=== PATIENT | male | born 1975 | race Two or more races ===

== ENCOUNTER 2025-03-14 15:54 | Inpatient (IN) | payer MEDICAID ==
[~2025-03-14] VITALS: Ht 177.8 cm; Wt 110.5 kg
[2025-03-14] VITALS (15 sets, daily range): BP systolic 94–117; BP diastolic 48–71; PULSE 97–136; RESP 16–27; TEMP 97.4; O2SAT 94–99
[~2025-03-14 15:54] MED LIST: ATOR80TA PO; BENA20TA2 PO; BENZ1KIT27; CHOL200012 PO; CLIN60SO2 TP; FOLI0.8T7 PO; FURO80TA87 PO; HYDR100T12 PO; LABE300T4 PO; OMEP40CA21 PO; POLY17PO26 PO; Renagel PO; SERT50TA PO
--- NOTE | 2025-03-14 16:09 | Physician Documentation ---
History of Present Illness General Chief Complaint: Hypotension Stated Complaint: SEPSIS Time Seen by MD: 15:55 History of Present Illness Initial Comments The patient is a 49-year-old male who presents to the emergency room being transferred from [facility] for fevers. The patient was at dialysis today and was noted to have a fever. He states he has had fevers since yesterday and nausea and vomiting. The patient was found to have a temperature of 38.3 at [place] and was found to be tachycardic to a proximally 130 beats per minute. The patient did receive antibiotics prior to his transfer. The patient denies any significant abdominal pain he states he has had some nausea but currently he is without any nausea. He states he has been on dialysis secondary to high blood pressure. Patient denies any chest pain or shortness of breath symptoms are moderate and persistent. The patient was treated with antibiotics prior to arrival in our institution. Medication Reconciliation Allergies: Coded Allergies: Penicillins (Verified Allergy, Unknown, 04/07/14) cefazolin (Unverified Allergy, Unknown, 03/14/25) guaifenesin (Verified Adverse Reaction, Unknown, PT NOT TO TAKE PER HIS PSYCHIATRIST, 01/07/19) Scheduled Amlodipine Besylate (Amlodipine Besylate), 1 TAB PO DAILY, (Reported) Atorvastatin Calcium (Lipitor), 1 TABLET PO HS, (Reported) Benazepril Hcl (Benazepril Hcl), 40 MG PO BID, (Reported) Cholecalciferol (Vitamin D3) (Vitamin D3), 1 TAB PO DAILY, (Reported) Cholecalciferol (Vitamin D3) (Vitamin D3), 1 TAB PO DAILY, (Reported) Clindamycin Phosphate (Clindamycin Phosphate), 1 APPLIC TP BID, (Reported) Folic Acid/Vitamin B Comp W-C (Dialyvite 800 Tablet), 1 TAB PO DAILY, (Reported) Furosemide* (Lasix*), 1 TAB PO TID, (Reported) Hydralazine HCl (Hydralazine HCl), 1 TAB PO Q8H, (Reported) Labetalol Hcl (Labetalol Hcl), 2 TAB PO TID, (Reported) Multivitamin (One-Daily Multi-Vitamin), 1 TAB PO DAILY, (Reported) Omeprazole (Prilosec), 1 CAP PO DAILY, (Reported) Polyethylene Glycol 3350 (Gavilax), 17 GM PO DAILY, (Reported) Sertraline Hcl* (Zoloft*), 2 TAB PO BID, (Reported) [Renagel], 2,400 MG PO TIDWM, (Reported) Miscellaneous Medications Benzoyl Perox/Skin Clnsr/Emoll (Acnefree Severe Acne Clr Systm), (Reported) Cinacalcet HCl (Cinacalcet HCl), (Reported) Lorazepam (Ativan), (Reported) Olanzapine/Samidorphan Malate (Lybalvi 5-10 mg Tablet), (Reported) Sevelamer HCl (Sevelamer HCl), (Reported) Sodium Zirconium Cyclosilicate (Lokelma), (Reported) Past Medical History Past Medical History: Renal Disease Past Surgical History: noncontributory Drug Use: none Lives with: Other Lives In: Home Physical Exam Physical Exam Vital Signs: Temperature: 98.7, Source: Oral, Heart Rate: 112, Respiratory Rate: 16, BP: 111/66, Pulse Oximetry: 97, Weight: 110.500 Oxygen Flow Rate: 0 Physical Exam VITALS: Reviewed and as above. GENERAL: Alert, no apparent distress. HEENT: Normocephalic, atraumatic, PERRL, EOMI, dry mucosa, no erythema RESPIRATORY: Lungs clear, normal breath sounds, no respiratory distress. CHEST: No accessory muscle use, no retractions CV: Tachycardic rate and rhythm, no edema, no murmur, No: JVD GI: Soft, non-tender, bowels sounds present, no rebound, guarding, or rigidity BACK: No CVA tenderness, or swelling MUSCULOSKELETAL: No deformities, no edema SKIN: Warm and dry, no rash NEURO: Oriented x4, No motor or sensory deficit PSYCH: Normal mood and affect, no agitation Progress Results/Orders Results/Orders Orders - OHLFS,CHRISTINA Gomez MD Page Hospitalist (03/14/25 16:47) Completed Orders - OHLFS,CHRISTINA Gomez MD Cbc/Diff (03/14/25 16:08) Bmp Er (03/14/25 16:08) Lacticsepsis (03/14/25 16:09) Procalcitonin (03/14/25 16:09) Hs Troponin I W Calculations (03/14/25 16:16) Electrocardiogram (03/14/25 16:39) C-Reactive Protein (03/14/25 16:40) Lipid Panel (03/14/25 16:40) Vital Signs 03/14/25 03/14/25 15:58 16:12 Temp 98.7 Pulse 112 Resp 16 14 B/P (MAP) 111/66 Pulse Ox 97 O2 Flow Rate 0 Laboratory Tests Test 03/14/25 16:40 White Blood Count 6.8 Red Blood Count 4.00 L Hemoglobin 12.5 L Hematocrit 36.9 L Mean Corpuscular Volume 92.2 Mean Corpuscular Hemoglobin 31.3 H Mean Corpuscular Hemoglobin Concent 34.0 Red Cell Distribution Width 15.0 H Platelet Count 71 L Mean Platelet Volume 8.5 Neutrophils (%) (Auto) 91.4 H Lymphocytes (%) (Auto) 4.3 L Monocytes (%) (Auto) 3.7 Eosinophils (%) (Auto) 0.1 Basophils (%) (Auto) 0.5 Neutrophils # (Auto) 6.2 Lymphocytes # (Auto) 0.3 L Monocytes # (Auto) 0.3 Eosinophils # (Auto) 0.0 Basophils # (Auto) 0.0 CBC Comment Erythrocyte Sedimentation Rate 34 H Sodium Level 134 L Potassium Level 4.5 Chloride Level 98 L Carbon Dioxide Level 26.0 Anion Gap 10 Blood Urea Nitrogen 25 H Creatinine 8.82 H Estimated GFR/1.73 m2 6 BUN/Creatinine Ratio 2.8 L Glucose Level 96 Lactic Acid Level 2.4 H Calcium Level 9.6 Troponin I High Sensitivity 168 *H C-Reactive Protein 20.38 H Albumin 3.3 L Triglycerides Level 218 H Cholesterol Level 114 LDL Cholesterol 50 HDL Cholesterol 30 L Cholesterol/HDL Ratio 3.8 Procalcitonin 145.12 H Chemistry Comments EKG/XRAY/CT/US/VASC/MRI Chest X-Ray : Additional Comments Patient: ZAHRAA DANG Medical Record: [id number] [facility] : 1975, Age: 49 Sex: Male Location: [facility] 3S Patient Status: ADM IN Service Date/Time: 03/14/25/ Ordering Physician: ZACH CASTILLO Exam: CHEST,SINGLE VIEW CHEST RADIOGRAPH Indication: sob Technique: Single frontal view of the chest was obtained Comparison: None FINDINGS: Lines and Tubes: None Lungs: Diffuse interstitial prominence. Right infrahilar opacity. Elevated right hemidiaphragm. Indistinctness of the left hemidiaphragm. No pneumothorax. Cardiomediastinal contours: Mild cardiomegaly Bones: No acute osseous abnormality. IMPRESSION: Mild cardiomegaly with pulmonary vascular congestion. Obscuration of the left hemidiaphragm which may be from overlying cardiac silh ouette. Underlying trace effusion/atelectasis can not be excluded. Right infrahilar opacity which may represent pneumonia / atelectasis with a mass not excluded. CT is recommended for further evaluation. Electronically Signed by:LUZ MARINA BRIZUELA DO Date & Time: 03/14/252151 Dictated by: LUZ MARINA BRIZUELA DO Dictation date and time: 03/14/252151 Primary Care Provider: NO PRIMARY CARE PROVIDER cc: ZACH CASTILLO RES ~ Medical Decision Making Findings The patient has a recently placed tunneled dialysis catheter, the case was discussed with Dr. Goldberg who states the cultures of already started growing Gram- negative rods he is advising the patient needs the catheter removed. The case has been discussed with the surgeon on-call Dr. Lu he has agreed to remove the catheter the patient will be admitted to the hospitalist. The patient will be admitted to the hospitalist case has been discussed with the hospitalist. Prior hospitalizations have been reviewed. The patient's pulse oximetry was interpreted as normal and adequate there nurse monitoring was interpreted as a sinus tachycardia. Departure Admitted to Inpatient Unit: yes, to hospitalist Impression: Primary Impression: Line sepsis associated with dialysis catheter Referrals: NO PRIMARY CARE PROVIDER (PCP) Signature Scribe Signature: no scribe Attestation: The note accurately reflects work and decisions made by me.Christina Ramirez MD 03/17/25 00:31 CHRISTINA RAMIREZ MD Mar 14, 2025 16:09
--- NOTE | 2025-03-14 16:54 | ELECTROCARDIOGRAPH REPORT ---
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
[2025-03-14 16:56] LABS: MEAN PLATELET VOLUME 8.5 FL (7.4-10.4); RED CELL DISTRIBUTION WIDTH 15.0 % (11.5-14.5)
[2025-03-14 17:05] LABS: CREATININE 8.82 MG/DL (0.60-1.10); TOTAL CARBON DIOXIDE 26.0 MMOL/L (24-32); eCRCL 11 ML/MIN; eGFR 6 ML/MIN
--- NOTE | 2025-03-14 17:52 | CONSULTATION REPORT ---
Consult Providers to CC ~ History of Present Illness Primary Medical Doctor: berta Ramirez MD Reason for Admit\Complaint: line sepsis, high procalcitonin, s/p HD today History of Present Illness 49 year old gentleman that is well known to me from [place] [facility] , where hehas been on HD for his ESRD as early as 2005, that unfortunatley lost his AV fistula and has been on TDC. He has had one sepsis from the line previously some time ago. He started spiking fevers with chlls at the dialysis center during HD and blood cultures were drawn. I made sure he received Vancomycin and 2 g of cefepime, prior to transferring him to Er. He came to [facility] ER. Within 4 hours, his cultures were positive for GNR. So I requested to consult to get the TDC out today to avoid seeding futehr and avoid endocarditis. gaciously agreed to do it after his OR case today. patient is stable however, from hemodynamic standpoint. Allergies: Coded Allergies: Penicillins (Verified Allergy, Unknown, 04/07/14) cefazolin (Unverified Allergy, Unknown, 03/14/25) guaifenesin (Verified Adverse Reaction, Unknown, PT NOT TO TAKE PER HIS PSYCHIATRIST, 01/07/19) Home Medications Home Medications Active Reported Acnefree Severe Acne Clr Systm (Benzoyl Perox/Skin Clnsr/Emoll) 1 Each Kit Gavilax (Polyethylene Glycol 3350) 17 Gm Powd.pack 17 Gm PO DAILY Vitamin D3 (Cholecalciferol (Vitamin D3)) 2,000 Unit Capsule 1 Tab PO DAILY Hydralazine HCl 100 Mg Tablet 1 Tab PO Q8H 30 Days Dialyvite 800 Tablet (Folic Acid/Vitamin B Comp W-C) 0.8 Mg Tablet 1 Tab PO DAILY 30 Days Prilosec (Omeprazole) 40 Mg Capsule 1 Cap PO DAILY 30 Days Clindamycin Phosphate 60 Ml Solution 1 Applic TP BID [Renagel] 800 Tab 2,400 Mg PO TIDWM Labetalol Hcl 300 Mg Tablet 2 Tab PO TID Zoloft* (Sertraline HCl) 50 Mg Tablet 2 Tab PO BID Lasix* (Furosemide) 80 Mg Tablet 1 Tab PO TID Benazepril Hcl (Benazepril HCl) 20 Mg Tablet 40 Mg PO BID Lipitor (Atorvastatin Calcium) 80 Mg Tablet 1 Tablet PO HS Past Medical History Past Medical History ESRD HTN Arrhythmia Depression/anxiety Past Surgical History Surgical History Comment AV fistula that failed Past Social History Social History Comment non smoker, non alcoholic, no drug abuse history ROS ROS chills, rigors in dialysis. no feels ok. no chest pain, or shortness of breath. completed his dialysis today. Exam Vitals: Vital Signs Date Time Temp Pulse Resp B/P (MAP) Pulse Ox O2 Delivery O2 Flow Rate FiO2 03/14/25 16:12 14 03/14/25 15:58 98.7 112 97 0 General: Vital Signs: As above General: Normal body habitus, no acute distress. Skin: No rashes, lumps, ulcers, blisters, purpura or petechiae HEENT: Anicteric sclera, SHERMAN Neck: Supple and nontender without enlargement of the thyroid, or lymphadenopathy. Chest: Normal size and shape, no tenderness, CTA bilaterally Heart: Regular. No jugular venous distention, S1 and S2 heard , no gallop Abdomen: Soft and non tender no organomegaly,BS+ Extremities: No pedal edema Neuro: Nonfocal. Diagnostic Data Last Recorded Lab Results: 03/14/25 1640 03/14/25 1640 Problems: (1) Line sepsis associated with dialysis catheter Assessment & Plan: has graciously agreed to pullthe TDC out today, after he is done with the OR case. He has received the Cefepime 2 g in [facility] [place] and he does NOT need any antibiotics tomorrow. STOP Vancomycin. He is growing GNR. He already received Vancomycin as well in [facility] [place] dialysis today. Cefepime will stay in system until Monday and to give another dose only on Monday. If the repeat cultures are negative by Monday, will request a new TDC early next week followed by dialysis. (2) End-stage renal disease on hemodialysis Status: Chronic Assessment & Plan: next HD hopefully by Monday with a new TDC from if the cultures remain negative henceforth. Daily blood cultures please. BRENNAN TATUM MD Mar 14, 2025 17:52
[2025-03-14] MEDS ORDERED: morphine 4 MG/ML inj SYRINge IV PRN (18:05)
[2025-03-14] MEDS ORDERED: labetalol 20mg/4ml (5mg/ml) syringe IV PRN (18:05)
[2025-03-14] MEDS ORDERED: ondansetron/PF 4mg/2ml inj IV PRN ×2 (18:05→18:35)
[2025-03-14] MEDS ORDERED: fentaNYL/PF 50MCG/1 ML 2ML syringe IV PRN ×2 (18:05)
[2025-03-14] MEDS ORDERED: hydrALAZINE 20mg/ml inj. IV PRN (18:05)
--- NOTE | 2025-03-14 18:28 | PROGRESS NOTE ---
Progress Note ID Providers to CC ~ Progress Note Progress Note: discussed procedure including risks/benefits/alternatives YENY ZEPEDA MD Mar 14, 2025 18:28
[2025-03-14] MEDS ORDERED: mag hydrox/Alum hydrox/simeth 30ml oral suspension PO PRN (18:35)
[2025-03-14] MEDS ORDERED: magnesium Cl slow-release 64mg tablet PO PRN (18:35)
[2025-03-14] MEDS ORDERED: potassium Cl 20 mEq SR tablet PO PRN ×2 (18:35)
[2025-03-14] MEDS ORDERED: HYDROcodone/acetaminophen 10/325mg tab PO PRN ×2 (18:35→19:50)
[2025-03-14] MEDS ORDERED: magnesium sulf-water 2g/50mL 50 ML IV PRN (18:35)
[2025-03-14] MEDS ORDERED: HYDROcodone/acetaminophen 5mg/325mg tablet PO PRN (18:35)
[2025-03-14] MEDS ORDERED: magnesium sulf-water 4G/100mL 100 ML IV PRN (18:35)
[2025-03-14] MEDS ORDERED: magnesium hydroxide 30ml (MOM) UD suspension PO PRN (18:35)
[2025-03-14] MEDS ORDERED: potassium Cl 40MEQ/1/2NS 520ml 520 ML IV PRN (18:35)
[2025-03-14] MEDS ORDERED: fentaNYL/PF 50MCG/1 ML 2ML syringe ONE (18:43)
[2025-03-14] MEDS ORDERED: midazolam 1 mg/ML 2ml injection ONE (18:43)
[2025-03-14] MEDS ORDERED: LIDOcaine 1% (10mg/ml)w/preservative inj. 20ml MDV ONE (18:50)
--- NOTE | 2025-03-14 19:12 | HISTORY AND PHYSICAL-Residence ---
History & Physical Providers to CC Resident Creating Document: MARITTA CASTILLOVANI, RES ~ History of Present Illness Primary Medical Doctor: berta Ramirez MD Reason for Admit\Complaint: Sepsis History of Present Illness This is a 49-year-old male with past medical history of hypertension and chronic kidney disease stage 5 on dialysis who came to the ER from [place] in view of infected TDC placed on the right side of his chest. He was diagnosed with hypertension at the age of 20 years and is undergoing dialysis since 8-[address] Goldberg's patient. A new temporary dialysis catheter was inserted on Monday. On Monday he started feeling feverish with nausea and vomiting. 2-3 episodes of vomiting today, contained food particles, not blood tinged, non bile stained. He had a dialysis session today in [place] during which time Dr. Goldberg noticed that his TDC was infected and referred him to [facility]. He was taken to the OR on arrival and a new TDC was placed. He was given 2 g cefepime in [place] which will stay in his system for the next 48 hours. His next antibiotic dose is on Monday. His next dialysis session is on Monday. 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 He is a poor historian. We will call his facility to get some more information Allergies: Coded Allergies: Penicillins (Verified Allergy, Unknown, 04/07/14) cefazolin (Unverified Allergy, Unknown, 03/14/25) guaifenesin (Verified Adverse Reaction, Unknown, PT NOT TO TAKE PER HIS PSYCHIATRIST, 01/07/19) Home Medications Home Medications Active Reported Acnefree Severe Acne Clr Systm (Benzoyl Perox/Skin Clnsr/Emoll) 1 Each Kit Gavilax (Polyethylene Glycol 3350) 17 Gm Powd.pack 17 Gm PO DAILY Vitamin D3 (Cholecalciferol (Vitamin D3)) 2,000 Unit Capsule 1 Tab PO DAILY Hydralazine HCl 100 Mg Tablet 1 Tab PO Q8H 30 Days Dialyvite 800 Tablet (Folic Acid/Vitamin B Comp W-C) 0.8 Mg Tablet 1 Tab PO DAILY 30 Days Prilosec (Omeprazole) 40 Mg Capsule 1 Cap PO DAILY 30 Days Clindamycin Phosphate 60 Ml Solution 1 Applic TP BID [Renagel] 800 Tab 2,400 Mg PO TIDWM Labetalol Hcl 300 Mg Tablet 2 Tab PO TID Zoloft* (Sertraline HCl) 50 Mg Tablet 2 Tab PO BID Lasix* (Furosemide) 80 Mg Tablet 1 Tab PO TID Benazepril Hcl (Benazepril HCl) 20 Mg Tablet 40 Mg PO BID Lipitor (Atorvastatin Calcium) 80 Mg Tablet 1 Tablet PO HS Past Medical History Past Medical History Hypertension Chronic kidney disease Depression/anxiety Past Surgical History Surgical History Comment None Past Social History Smoking: Non-Smoker Alcohol Use: Sober (Sober since 8-9 years. 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) Domestic Violence: Neg ROS Constitutional: Reports: diaphoresis, fever Eyes: Reports: no symptoms reported ENT: Reports: no symptoms reported Respiratory: Reports: no symptoms reported, shortness of breath Cardiovascular: Reports: no symptoms reported Gastrointestinal: Reports: no symptoms reported Genitourinary: Reports: no symptoms reported Male Genitalia: Reports: no symptoms reported Neurological: Reports: no symptoms reported Musculoskeletal: Reports: no symptoms reported Integumentary: Reports: no symptoms reported Allergic/Immunologic: Reports: no symptoms reported Hematologic/Lymphatic: Reports: no symptoms reported Endocrine: Reports: no symptoms reported Psychiatric: Reports: no symptoms reported Exam Vitals: Vital Signs Date Time Temp Pulse Resp B/P (MAP) Pulse Ox O2 Delivery O2 Flow Rate FiO2 03/14/25 16:12 14 03/14/25 15:58 98.7 112 97 0 General: General: Patient waking up from anesthesia, oriented to place and time and person, drowsy, not agitated, not in acute distress, well cooperated during the physical. HEENT: Conjunctive are pink, sclerae clear, no icterus, pupil is equal in both sides, reactive to light, no ear discharge, no pharyngeal erythema or an edema. Neck: Supple, no JVD, no lymphadenopathy and thyromegaly. Chest: Equal air entry on both lungs, no additional sounds no rhonchi no wheezing at the moment. TDC in the right side of his chest with a surrounding erythema and effusion Cardiovascular: S1-S2 regular sinus rhythm and, regular rate, no gallops, no rubs, no murmurs Abdomen: No visible peristalsis, Bowel sounds present on auscultation, soft, nontender, no guarding, no rigidity Extremities: No obvious deformities, no pitting edema bilaterally, capillary refill intact, peripheral pulsations are intact on both sides Central Nervous System: No focal neurological deficits, no motor or sensory weakness in all 4 extremities, could move all 4 extremities, 2+ deep tendon reflexes, negative Babinski. Musculoskeletal: No joint swelling, deformities, inflammations, and no scoliosis and back tenderness Skin: Warm and dry. Diagnostic Data Last Recorded Lab Results: 03/14/25 1640 03/14/25 1640 Counseling Services Smoking & Tobacco Cessation: N/A Advance Care Planning Advanced Care plannin - 30 Minutes (Full code) Additional Plan Assessment: This is a 49-year-old male with past medical history of hypertension and chronic kidney disease stage 5 on dialysis who came to the ER from [place] in view of infected TDC . Plan: Sepsis most likely due to infected TDC catheter 03/14/2025: Pulse rate 112, blood pressure was soft 111/66, temperature 98.7 Patient does not meet the SIRS criteria, but source of infection present, and patient is a CKD stage 5 WBC 6.8, procalcitonin 168 He was shifted to OR directly from the ER, infected TDC to be removed Cefepime IV 2 g was given in [place], which is going to stay and has system for the next 48 hours. Next dose of cefepime is on Monday. No antibiotics to be given tomorrow Blood culture from [place] grew Gram-negative rods. Culture from the catheter tip to be sent Lactic acid, ESR, CRP ordered. Stage 5 chronic kidney disease on dialysis Patient is undergoing dialysis since 8-9 years Serum creatinine of 8.82, BUN of 25, troponin 168. Potassium 4.5 No aggressive fluid hydration, watch out for fluid overload symptoms We will order serial troponin to see the trend. Dr. Goldberg as his product safety head. His last dialysis was today morning and his next scheduled dialysis is on Monday Monitor potassium levels Primary Hypertension Diagnosed with hypertension at the age of 20 years Patient does not remember his list of medication. We will try calling his facility to get some more information. Strict monitoring of blood pressure Ordered echo and chest x-ray CODE STATUS: Full code DVT prophylaxis: SCDs Analgesia/sedation: Tylenol/morphine/[place] as needed Lines/tubes: PIV GI prophylaxis: None Nutrition: Full liquid Prognosis: Guarded Disposition: Admit to telemetry, patient is a poor historian, we will try calling this facility to get some more information. Has provided a number [phone] Zach Castillo MD PGY1, Internal Medicine [facility] Date of Service: Mar 14, 2025 Billing Provider: DENNYS GILL MD Common Visit Codes: 22260-APYYIRA INP/OBS CARE (HIGH) Secondary Visit Codes: 71609-[id number] CARE PLAN 30 MINUTES ZACH CASTILLO, RES Mar 14, 2025 19:12 DENNYS GILL MD Mar 16, 2025 07:59
--- NOTE | 2025-03-14 19:44 | OPERATIVE REPORT ---
Operative Report Providers to CC ~ Date of Procedure: Mar 14, 2025 Pre-Operative Diagnosis: sepsis Post-Operative Diagnosis SAME as PRE-Op Procedure Performed tdc catheter removal Surgeon: edmond cunningham Anesthesiologist: Da Stafford Type of Anesthesia: General Findings: intact catheter Estimated Blood Loss: min Specimen Removed: tdc catheter YENY ZEPEDA MD Mar 14, 2025 19:44
[2025-03-14 19:56] LABS: CHOL/HDL RATIO 3.8 (0.00-4.99); LDL CHOLESTEROL 50 MG/DL (50-100)
[2025-03-14] MEDS: K and/or MAG REPLACEMENT MC SCH (20:00)
[2025-03-14] MEDS: docusate sod 100mg capsule PO SCH (20:00)
[2025-03-14] MEDS: VANCOMYCIN/H2O 1.5g/300mL PB 300 ML IV SCH (20:15)
[2025-03-14] MEDS: ringers solution, lacted 1,000 ML IV SCH (21:03)
--- NOTE | 2025-03-14 21:55 | RADIOLOGY REPORT ---
CHEST RADIOGRAPH Indication: sob Technique: Single frontal view of the chest was obtained Comparison: None FINDINGS: Lines and Tubes: None Lungs: Diffuse interstitial prominence. Right infrahilar opacity. Elevated right hemidiaphragm. Ind istinctness of the left hemidiaphragm. No pneumothorax. Cardiomediastinal contours: Mild cardiomegaly Bones: No acute osseous abnormality. IMPRESSION: Mild cardiomegaly with pulmonary vascular congestion. Obscuration of the left hemidiaphragm which may be from overlying cardiac silhouette. Underlying trac e effusion/atelectasis can not be excluded. Right infrahilar opacity which may represent pneumonia / atelectasis with a mass not excluded. CT is recommended for further evaluation.
[2025-03-15] VITALS (11 sets, daily range): BP systolic 95–130; BP diastolic 63–80; PULSE 87–126; RESP 12–23; TEMP 97–102.3; O2SAT 91–100
--- NOTE | 2025-03-15 07:37 | CONSULTATION ---
DATE OF CONSULTATION: 03/14/2025 DICTATING PHYSICIAN: Tone Price MD REASON FOR CONSULTATION: Evaluation for catheter removal. HISTORY OF PRESENT ILLNESS: The patient is a 49-year-old male who had tunneled dialysis catheter placed approximately 3 days ago. The patient developed evidence of fever , found to be tachycardic and found to have Gram-negative rods in his blood, then transferred to [facility] for catheter removal. The patient has had a fever, some discomfort. PAST MEDICAL HISTORY: Notable for renal disease. PAST SURGICAL HISTORY: catheter placement. HOME MEDICATIONS: Include atorvastatin, benazepril, a variety of current medications including Lasix, Prilosec, sertraline. ALLERGIES: PENICILLIN, GUAIFENESIN, ANCEF. SOCIAL HISTORY: . PHYSICAL EXAMINATION: GENERAL: Well-nourished male, in no distress. VITAL SIGNS: Unremarkable. HEART: Regular rhythm. LUNGS: Clear to auscultation. ABDOMEN: Benign. EXTREMITIES: Unremarkable. catheter was placed in the right upper chest wall. LABORATORY DATA: Labs included WBC of 6, hematocrit of 36, platelet count 71. Chemistries include BUN and creatinine of 45 and 8.8. Troponin was elevated at 168. Procal was 145. IMPRESSION: * Line sepsis catheter placement. * History of end-stage renal disease. RECOMMENDATIONS: * Remove the catheter. * Continue IV antibiotics. Tone Price MD TID: [id number] RECEIPT: [id number] HERMINIA/MADYSON/PARUL
--- NOTE | 2025-03-15 07:40 | OPERATIVE REPORT ---
DATE OF SURGERY: 03/14/2025 DICTATING PHYSICIAN: Tone Price MD PREOPERATIVE DIAGNOSIS: Sepsis with recent TDC catheter. POSTOPERATIVE DIAGNOSIS: Sepsis with recent TDC catheter. PROCEDURE PERFORMED: TDC catheter removal. SURGEON: Tone Price MD COMPUTER SYSTEMS SUPPORT SPECIALIST: None ANESTHESIA: General/Dr. Stafford. DRAINS: None INDICATIONS FOR OPERATION: A 49-year-old male who had TDC catheter placed, developed fever, chills. Positive culture. He was taken to surgery for TDC catheter removal. INTRAOPERATIVE FINDINGS: Intact TDC catheter. DESCRIPTION OF PROCEDURE: The patient was placed supine on the operating table. After induction of general anesthesia and placement of endotracheal tube, the chest was prepped and draped. Sutures were then removed. The catheter was removed without difficulty and found to be intact. The tip was sent for culture. Pressure was held over the incision for approximately 5 minutes and a pressure dressing applied. The patient was transferred to recovery in stable condition. Tone Price MD TID: [id number] RECEIPT: [id number] HERMINIA/WAYNE/MYLENE
[2025-03-15] MEDS ORDERED: levoFLOXACIN-Levaquin 750MG/D5 150 ML IV ONE (08:00)
[2025-03-15 08:59] LABS: CREATININE 10.72 MG/DL (0.60-1.10); TOTAL CARBON DIOXIDE 22.1 MMOL/L (24-32); eCRCL 9 ML/MIN; eGFR 5 ML/MIN
[2025-03-15 12:13] LABS: MEAN PLATELET VOLUME 9.0 FL (7.4-10.4); RED CELL DISTRIBUTION WIDTH 14.8 % (11.5-14.5)
[2025-03-15] MEDS ORDERED: OLAN1TAB PO (13:25)
[2025-03-15] MEDS ORDERED: SEVE800T28 (13:25)
[2025-03-15] MEDS ORDERED: CINA60TA4 PO (13:25)
[2025-03-15] MEDS ORDERED: MULT-1219 PO (13:25)
[2025-03-15] MEDS ORDERED: AMLO10TA13 PO (13:25)
[2025-03-15] MEDS ORDERED: LORA-268 PO (13:25)
[2025-03-15] MEDS ORDERED: SODI10PO (13:25)
[2025-03-15] MEDS ORDERED: CHOL100017 PO (13:25)
--- NOTE | 2025-03-15 14:10 | ELECTROCARDIOGRAPH REPORT ---
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 AMBER Bhandari Measurements Intervals [place] Rate: 128 P: 75 MT: 124 QRS: 111 QRSD: 181 T: -4 QT: 336 QTc: 491 Interpretive Statements Sinus tachycardia Multiple ventricular premature complexes RBBB and LPFB Electronically Signed On 03-15-2025 16:27:[address] AMBER Bhandari Please click the below link to view image of tracing.
--- NOTE | 2025-03-15 14:12 | ELECTROCARDIOGRAPH REPORT ---
[facility] Test Date: 2025-03-15 Test Time: 14:10:58 Pat Name: ZAHRAA DANG Department: [facility] 3S Patient ID: [facility]-[id number] Room: [place] [address] B Gender: M Night Manager: : 1975 Requested By: DENNYS GILL Order Number: [id number] Reading MD: Dr. AMBER Bhandari Measurements Intervals [place] Rate: 124 P: 72 SC: 124 QRS: 111 QRSD: 176 T: -9 QT: 351 QTc: 505 Interpretive Statements Sinus tachycardia RBBB and LPFB Electronically Signed On 03-15-2025 16:27:[address] AMBER Bhandari Please click the below link to view image of tracing.
--- NOTE | 2025-03-15 18:17 | PROGRESS NOTE- Residence ---
Progress Note - Resident Providers to CC Resident Creating Document: ZACH CASTILLO RES ~ Central Line/PICC still needed: N\A Rodriguez-Non Protocol Rodriguez Indications Met/Not Met: F/C Indications Not Met Antibiotic Timeout Antibiotic Ordered?: Yes Subjective Patient was examined at bedside. He seems to be doing better no acute symptoms. He reports being shaky and anxiety anxious, we will continue as anxiety medication. Objective Vital Signs Date Time Temp Pulse Resp B/P (MAP) Pulse Ox O2 Delivery O2 Flow Rate FiO2 03/15/25 15:00 97.9 102 18 118/79 (92) 94 Room Air 03/15/25 04:54 2.0 03/15/25 04:13 28 Result Diagram: 03/15/25 1145 03/15/25 0704 General: Patient waking up from anesthesia, oriented to place and time and person, drowsy, not agitated, not in acute distress, well cooperated during the physical. HEENT: Conjunctive are pink, sclerae clear, no icterus, pupil is equal in both sides, reactive to light, no ear discharge, no pharyngeal erythema or an edema. Neck: Supple, no JVD, no lymphadenopathy and thyromegaly. Chest: Equal air entry on both lungs, no additional sounds no rhonchi no wheezing at the moment. TDC removed. Bandages looked clean and dry. Cardiovascular: S1-S2 regular sinus rhythm and, regular rate, no gallops, no rubs, no murmurs Abdomen: No visible peristalsis, Bowel sounds present on auscultation, soft, nontender, no guarding, no rigidity Extremities: No obvious deformities, capillary refill intact, peripheral pulsations are intact on both sides. Plus one pitting pedal edema. Central Nervous System: No focal neurological deficits, no motor or sensory weakness in all 4 extremities, could move all 4 extremities, 2+ deep tendon reflexes, negative Babinski. Musculoskeletal: No joint swelling, deformities, inflammations, and no scoliosis and back tenderness Skin: Warm and dry. Counseling Services Smoking & Tobacco Cessation: N/A Assessment Assessment Assessment: This is a 49-year-old male with past medical history of hypertension and chronic kidney disease stage 5 on dialysis who came to the ER from [facility] [place] in view of infected TDC . Plan Plan Plan: Sepsis most likely due to infected TDC catheter 03/14/2025: Pulse rate 112, blood pressure was soft 111/66, temperature 98.7 Patient does not meet the SIRS criteria, but source of infection present, and patient is a CKD stage 5 WBC 6.8, procalcitonin 168 He was shifted to OR directly from the ER, infected TDC to be removed Cefepime IV 2 g was given in [place], which is going to stay and has system for the next 48 hours. Next dose of cefepime is on Monday. No antibiotics to be given tomorrow Blood culture from [facility] [place] grew Gram-negative rods. Culture from the catheter tip to be sent 03/15/2025: Pulse 102 with few PVCs recorded on telemetry. Systolic blood pressure in 120s to 130s. WBC 6.6, ESR 34, procalcitonin 145, CRP 21 day 8. Next dose of antibiotics tomorrow, cefepime 1 mg. Culture from the catheter tip pending Preliminary blood culture showed no growth Stage 5 chronic kidney disease on dialysis Hyperkalemia Hyperphosphatemia Patient is undergoing dialysis since 8-9 years Serum creatinine of 8.82, BUN of 25, troponin 168. Potassium 4.5, phosphorus 5.7 No aggressive fluid hydration, watch out for fluid overload symptoms We will order serial troponin to see the trend. Dr. Goldberg as his bowling ball patcher. His last dialysis was today morning and his next scheduled dialysis is on Monday Monitor potassium levels 03/15/2025: Hemoglobin 11.9 Serum creatinine 10.72, potassium 5.4, phosphorus 5.7 No aggressive fluid hydration, watch out for fluid overload symptoms Dr. Goldberg bowling ball patcher consulted, we will insert a new TDC once the bloodstream infection is cleared Started sevelmer 800 mg t.i.d. p.o. Primary Hypertension Tachycardia with PVC Diagnosed with hypertension at the age of 20 years 03/15/2025: Continue home medication amlodipine 10 mg p.o. daily, lisinopril 40 mg b.i.d. p.o. Started him on metoprolol 25 mg b.i.d. We will continue monitoring his rate and rhythm Serial troponin trending down 168-134 Chest x-ray: Mild cardiomegaly with pulmonary vascular congestion. Obscuration of the left hemidiaphragm which may be from overlying cardiac silhouette. Underlying trace effusion/atelectasis can not be excluded. Right infrahilar opacity which may represent pneumonia / atelectasis with a mass not excluded. CT is recommended for further evaluation. Ordered echo Dyslipidemia Triglycerides 218, cholesterol 114, LDL 50, HDL 30 03/15/2025: Continue home medication atorvastatin 80 mg p.o. HS Anxiety Continue his home medication olanzapine 5 mg p.o. daily, sertraline 100 mg b.i.d. p.o. CODE STATUS: Full code DVT prophylaxis: SCDs Analgesia/sedation: Tylenol/morphine/[place] as needed Lines/tubes: PIV GI prophylaxis: None Nutrition: Full liquid Prognosis: Guarded Disposition: Continue medical management, monitor his blood pressure and heart rate. He Has provided a number [phone] Zach Castillo MD PGY1, Internal Medicine [facility] Date of Service: Mar 15, 2025 Billing Provider: DENNYS GILL MD Common Visit Codes: [id number] INP/OBS CARE(HIGH) ZACH CASTILLO, [facility] Mar 15, 2025 18:16 DENNYS GILL MD Mar 16, 2025 08:02
[2025-03-15] MEDS: sevelamer carbonate 800mg tablet PO SCH (23:45)
[2025-03-16] VITALS (16 sets, daily range): BP systolic 108–152; BP diastolic 62–99; PULSE 60–111; RESP 13–26; TEMP 96.2–100.8; O2SAT 92–98
[2025-03-16 05:52] LABS: MEAN PLATELET VOLUME 10.5 FL (7.4-10.4); RED CELL DISTRIBUTION WIDTH 15.3 % (11.5-14.5)
[2025-03-16 06:14] LABS: CREATININE 12.42 MG/DL (0.60-1.10); TOTAL CARBON DIOXIDE 24.4 MMOL/L (24-32); eCRCL 8 ML/MIN; eGFR 4 ML/MIN
[2025-03-16] MEDS ORDERED: cefepime 1GM in D5W 50mL 50 ML IV SCH (08:00)
[2025-03-16] MEDS: cefepime 1GM in D5W 50mL 50 ML IV SCH (09:04)
[2025-03-16] MEDS: OLANZAPINE 5 MG TABLET PO SCH (09:05)
[2025-03-16] MEDS: pantoprazole 40mg Tablet.DR PO SCH (09:07)
[2025-03-16] MEDS ORDERED: cefepime 1GM in D5W 50mL 50 ML IV ONE (09:10)
[2025-03-16 09:54] LABS: APTT 28 SECONDS (22-32); INR 1.0 INR
--- NOTE | 2025-03-16 12:04 | PROGRESS NOTE ---
Progress Note Dictate Providers to CC ~ Central Line/PICC still needed: Yes Central Line/PICC Necessity: Req HD/Plasmapheresis Rodriguez Indications Met/Not Met: F/C Indications Not Met Antibiotic Ordered?: Yes Subjective Subjective The patient is on room air. last dialysis was yesterday. will hopefully repeat blood cultures every day until it is negative. on board with placing a new TDC eventually. It may happen either tomorrow or day after, depending on the blood culture reports. Objective Vitals Vital Signs Date Time Temp Pulse Resp B/P (MAP) Pulse Ox O2 Delivery O2 Flow Rate FiO2 03/16/25 11:00 97.9 99 23 111/62 (78) 94 Room Air 03/16/25 03:39 25 03/15/25 04:54 2.0 Lab Results: 03/16/25 0515 03/16/25 0515 Objective Vital Signs: As above General: Normal body habitus, no acute distress. Skin: No rashes, lumps, ulcers, blisters, purpura or petechiae HEENT: Anicteric sclera, SHERMAN Neck: Supple and nontender without enlargement of the thyroid, or lymphadenopathy. Chest: Normal size and shape, no tenderness, CTA bilaterally Heart: Regular. No jugular venous distention, S1 and S2 heard , no gallop Abdomen: Soft and non tender no organomegaly,BS+ Extremities: + pedal edema Neuro: Nonfocal. Coagulation Studies Laboratory Tests Test 03/16/25 09:29 Prothrombin Time 10.7 SECONDS (9.0-12.0) INR International Normalized Ratio 1.0 INR Activated Partial Thromboplast Time 28 SECONDS (22-32) Coagulation Comments Advance Care Planning Advanced Care plannin - 30 Minutes Problem\Assessment\Plan Problems/Diagnosis: (1) Line sepsis associated with dialysis catheter Assessment & Plan: has graciouslypulled out the TDC yesterday, after he is done with the OR case. He has received the Cefepime 2 g in [facility] [place]. STOP Vancomycin. He is growing GNR. He already received Vancomycin earlier. He has positive E coli that is lowe sensitive. getting cefepime today again. (2) End-stage renal disease on hemodialysis Assessment & Plan: next HD hopefully by tomorrow or Monday with a new TDC from if the cultures remain negative henceforth. Daily blood cultures please. BRENNAN TATUM MD Mar 16, 2025 12:04
--- NOTE | 2025-03-16 15:14 | PROGRESS NOTE- Residence ---
Progress Note - Resident Providers to CC Resident Creating Document: MANDI SAUER RES ~ Antibiotic Timeout Antibiotic Ordered?: Yes Subjective Patient was examined at bedside.He feels better and denies any new symptoms Objective Vital Signs Date Time Temp Pulse Resp B/P (MAP) Pulse Ox O2 Delivery O2 Flow Rate FiO2 03/16/25 11:00 97.9 99 23 111/62 (78) 94 Room Air 03/16/25 03:39 25 03/15/25 04:54 2.0 Result Diagram: 03/16/25 0515 03/16/25 0515 Coagulation Studies Laboratory Tests Test 03/16/25 09:29 Prothrombin Time 10.7 SECONDS (9.0-12.0) INR International Normalized Ratio 1.0 INR Activated Partial Thromboplast Time 28 SECONDS (22-32) Coagulation Comments Assessment Assessment Assessment: This is a 49-year-old male with past medical history of hypertension and chronic kidney disease stage 5 on dialysis who came [place] the ER from [place] in view of infected TDC . Plan Plan Plan: Sepsis most likely due to infected TDC catheter 03/14/2025: Pulse rate 112, blood pressure was soft 111/66, temperature 98.7 Patient does not meet the SIRS criteria, but source of infection present, and patient is a CKD stage 5 WBC 6.8, procalcitonin 168 He was shifted to OR directly from the ER, infected TDC to be removed Cefepime IV 2 g was given in [place], which is going to stay and has system for the next 48 hours. Next dose of cefepime is on Monday. No antibiotics to be given tomorrow Blood culture from [place] grew Gram-negative rods. Culture from the catheter tip to be sent 03/15/2025: Pulse 102 with few PVCs recorded on telemetry. Systolic blood pressure in 120s to 130s. WBC 6.6, ESR 34, procalcitonin 145, CRP 21 day 8. Next dose of antibiotics tomorrow, cefepime 1 mg. Culture from the catheter tip pending Preliminary blood culture showed no growth 03/16/25: WBC:5.1, ESR : 63, Procalcitonin: 130.5 (trending down) , CRP 16.49 day 9 culture from catherter tip shows ecoli - resistant to cefazolin Plan: Continue cefipine 1g iv daily Stage 5 chronic kidney disease on dialysis Hyperkalemia Hyperphosphatemia Patient is undergoing dialysis since 8-9 years Serum creatinine of 8.82, BUN of 25, troponin 168. Potassium 4.5, phosphorus 5.7 No aggressive fluid hydration, watch out for fluid overload symptoms We will order serial troponin to see the trend. Dr. Goldberg as his citizenship teacher. His last dialysis was today morning and his next scheduled dialysis is on Monday Monitor potassium levels 03/15/2025: Hemoglobin 11.9 Serum creatinine 10.72, potassium 5.4, phosphorus 5.7 No aggressive fluid hydration, watch out for fluid overload symptoms Dr. Goldberg citizenship teacher consulted, we will insert a new TDC once the bloodstream infection is cleared Started sevelmer 800 mg t.i.d. p.o. 03/16/25 Hb: 10.8 Serum creatinine 12.42, K : 4.8, P: 5.75 Dr GOLDBERG recommended - Daily blood cultures and possible H.Dialysis tomorrow or today after Getting new TDC from if the cultures remain negative continue cefipime IV [address] Brady planning to do HD by tomorrow or Monday with a new TDC from and if the cultures remain negative . Daily ordered blood cultures NPO midnight Primary Hypertension Tachycardia with PVC Diagnosed with hypertension at the age of 20 years 03/15/2025: Continue home medication amlodipine 10 mg p.o. daily, lisinopril 40 mg b.i.d. p.o. Started him on metoprolol 25 mg b.i.d. We will continue monitoring his rate and rhythm Serial troponin trending down 168-134 Chest x-ray: Mild cardiomegaly with pulmonary vascular congestion. Obscuration of the left hemidiaphragm which may be from overlying cardiac silhouette. Underlying trace effusion/atelectasis can not be excluded. Right infrahilar opacity which may represent pneumonia / atelectasis with a mass not excluded. CT is recommended for further evaluation. Ordered echo :RVSP : 30 mmHg, 03/16/25: Echocardiogram shows : LV systolic dysfunction ejection fraction is about 40- 45%. T. Apical anterior, Mid and basal inferoseptal segments appear hypokinetic. Mild concentric hypertrophy. Right ventricle is severely dilated with reduced function. Estimated PA systolic pressure is 30 mmHg.Trace. Dyslipidemia Triglycerides 218, cholesterol 114, LDL 50, HDL 30 03/16/2025: Continue home medication atorvastatin 80 mg p.o. HS Anxiety Continue his home medication olanzapine 5 mg p.o. daily, sertraline 100 mg b.i.d. p.o. CODE STATUS: Full code DVT prophylaxis: SCDs Analgesia/sedation: Tylenol/morphine/[place] as needed Lines/tubes: PIV GI prophylaxis: None Nutrition: Full liquid Prognosis: Guarded Disposition: Dr Brady is following the patient and he is planning to do HD tomorrow or monday . mandi sauer [email or web address] Date of Service: Mar 16, 2025 Billing Provider: DENNYS GILL MD Common Visit Codes: [id number] INP/OBS CARE(HIGH) MANDI SAUER, [place] Mar 16, 2025 15:14 DENNYS GILL MD Mar 17, 2025 06:47
--- NOTE | 2025-03-16 18:15 | CARDIOLOGY REPORT ---
APPROVED REPORT EXAM: Comprehensive 2D, Doppler, and color-flow Echocardiogram. Patient Location: [address] Blood Pressure: 123/80 mmHg Heart Rate: 103 bpm Rhythm: Sinus Tachycardia with RBBB Indications Shortness of Breath Sepsis S/P surgical removal of Catheter Gram-Negative Rods in Blood Pneumonia Icu Tech: None Previous echo: 01/08/2019 [facility] EF:65-70%, mild MR, mild TR, mild RV 2D Dimensions RVDd 5.5 cm LA Diam4.9 cm RA Minor5.5 cmLVOT Diameter 2.29 (1.8-2.4cm) IVC 19.83 mmCO 7.8 L/min M-Mode Dimensions RVDd 3.56 (2.1-3.2cm) Left Atrium(MM) 5.29 (2.5-4.0cm) IVSd 1.59 (0.7-1.1cm) LVDd 6.29 (4.0-5.6cm) Aortic Root 3.60 (2.2-3.7cm) PWd 1.37 (0.7-1.1cm) Aortic Cusp Exc 2.16 (1.5-2.0cm) IVSs 1.84 cm MV EPSS 1.6 (<0.5cm) LVDs 5.00 (2.0-3.8cm) FS (%) 21 % PWs 1.70 cm ESV(Teich) 115.9 ml LVEF(%) 41 (>50%) Aortic Valve AoV Peak Avelino. 118.1 cm/s AoV VTI 21.4 cm AO Peak GR. 5.6 mmHg AO Mean GR. 3 mmHg LVOT VTI 18.05 cm LVOT Peak Avelino. 97.8 cm/s JO ANN(VTI)/BSA 3.47 cm2/m2 JO ANN (VTI) 3.47 cm2 Mitral Valve MV E Velocity 70.8 cm/s MV Peak Gr. 7 mmHg MV DECEL TIME 152 ms MV A Velocity 78.7 cm/s MV PHT 48 ms E/A Ratio 0.9 MVA (PHT) 4.58 cm2 MV OSpn050.1 cm/s TDI Lateral E' P. V7.16 cm/s E/Lateral E' 9.9 Tricuspid Valve TR P. Velocity 223 cm/s RAP ESTIMATE 10 mmHg TR Peak Gr. 20 mmHg RVSP 30 mmHg LEFT VENTRICLE The LV is dilated in size with moderately reduced function. Apical anterior, Mid and basal inferosept al segments appear hypokinetic. Mild concentric hypertrophy. There is moderate LV systolic dysfuncti on present. Overall estimated ejection fraction is about 40-45%. RIGHT VENTRICLE Right ventricle is severely dilated with reduced function. Estimated PA systolic pressure is 30 mmHg. ATRIA Severe biatrial enlargement. AORTIC VALVE Trileaflet AV appears sclerotic without stenosis. Trace insufficiency. MITRAL VALVE Mild MV annular thickening without stenosis. Moderate mitral regurgitation present. TRICUSPID VALVE TV appears structurally normal with mild regurgitation. PULMONIC VALVE Grossly normal PV without stenosis, physiologic insufficiency. GREAT VESSELS The aortic root is normal in size. IVC is normal in size and collapses less than 50% with inspiration . PERICARDIUM Normal pericardium. No pericardial effusion seen. Other Information Study Quality: Adequate Conclusion There is moderate LV systolic dysfunction present. Overall estimated ejection fraction is about 40-45%. The LV is dilated in size with moderately reduced function. Apical anterior, Mid and basal inferosept al segments appear hypokinetic. Mild concentric hypertrophy. Right ventricle is severely dilated with reduced function. Estimated PA systolic pressure is 30 mmHg. Trileaflet AV appears sclerotic without stenosis. Trace insufficiency. Mild MV annular thickening without stenosis. Moderate mitral regurgitation present. TV appears structurally normal with mild regurgitation. TV appears structurally normal with mild regurgitation. Grossly normal PV without stenosis, physiologic insufficiency. Normal pericardium. No pericardial effusion seen.
[2025-03-17] VITALS (17 sets, daily range): BP systolic 100–139; BP diastolic 62–85; PULSE 82–104; RESP 15–22; TEMP 97–99; O2SAT 90–99
[2025-03-17 07:06] LABS: CREATININE 15.08 MG/DL (0.60-1.10); TOTAL CARBON DIOXIDE 18.6 MMOL/L (24-32); eCRCL 6 ML/MIN; eGFR 3 ML/MIN
--- NOTE | 2025-03-17 07:23 | PROGRESS NOTE ---
Progress Note Dictate Providers to CC ~ Progress Note: preliminary notes for today: I request the residents team to check if there were any fevers overnight and if microbiology personnel via phone informs that the repeat cultures continue to be negative, please request to place a new TDC for him. If any culture is positive, we need to request a resident capable of placing a nato catheter to do that (temporary catheter) in the groin for one dialysis later today, with supervision from ICU physician. I am tied up in clinic all day and will be able to see him only in the evening today after 5 pm Central Line/PICC still needed: Yes Central Line/PICC Necessity: Req HD/Plasmapheresis Rodriguez Indications Met/Not Met: F/C Indications Not Met Antibiotic Ordered?: Yes Objective Vitals Vital Signs Date Time Temp Pulse Resp B/P (MAP) Pulse Ox O2 Delivery O2 Flow Rate FiO2 03/18/25 13:45 78 18 96 25 18 03/18/25 12:02 Room Air* 0 03/18/25 11:00 97.9 139/77 (97) Lab Results: 03/18/25 0502 03/18/25 0502 Objective Vital Signs: As above General: Normal body habitus, no acute distress. Skin: No rashes, lumps, ulcers, blisters, purpura or petechiae HEENT: Anicteric sclera, SHERMAN Neck: Supple and nontender without enlargement of the thyroid, or lymphadenopathy. Chest: Normal size and shape, no tenderness, CTA bilaterally Heart: Regular. No jugular venous distention, S1 and S2 heard , no gallop Abdomen: Soft and non tender no organomegaly,BS+ Extremities: + pedal edema Neuro: Nonfocal. Coagulation Studies Laboratory Tests Test 03/16/25 09:29 Prothrombin Time 10.7 SECONDS (9.0-12.0) INR International Normalized Ratio 1.0 INR Activated Partial Thromboplast Time 28 SECONDS (22-32) Coagulation Comments Advance Care Planning Advanced Care plannin - 30 Minutes Problem\Assessment\Plan Problems/Diagnosis: (1) Line sepsis associated with dialysis catheter Assessment & Plan: has graciously pulled out the TDC 3 days ago - on GNR coverage for the E Coli (2) End-stage renal disease on hemodialysis Assessment & Plan: hD today. with temp BRENNAN Yates MD Mar 17, 2025 07:23
[2025-03-17] MEDS ORDERED: levoFLOXACIN-Levaquin 500mg/D5 100 ML IV SCH (08:00)
[2025-03-17 14:02] LABS: RED CELL DISTRIBUTION WIDTH 15.2 % (11.5-14.5)
[2025-03-17 14:03] LABS: MEAN PLATELET VOLUME 9.7 FL (7.4-10.4)
[2025-03-17] MEDS ORDERED: albumin (human) 25% 100ml IV 100 ML IV PRN (15:40)
--- NOTE | 2025-03-17 15:46 | PROGRESS NOTE ---
Progress Note Dictate Providers to CC ~ Central Line/PICC still needed: Yes Central Line/PICC Necessity: Req HD/Plasmapheresis Rodriguez Indications Met/Not Met: F/C Indications Not Met Antibiotic Ordered?: Yes Subjective Subjective Now ID has been consulted. He isn't getting a new TDC today. Hisplatelets have been chronically low. this is the second line sepsis. promptly the line was pulled. E coli sepsis that is lowe sensitive. Requested resident to place a temporary dialysis cath in the groin, so that we can get him dialyzed tonight with mannitol and removal of 4-5 liters of fluid as tolerated. In a couple of days, if the cultures remain negative, we can consider placing TDC by in OR. Objective Vitals Vital Signs Date Time Temp Pulse Resp B/P (MAP) Pulse Ox O2 Delivery O2 Flow Rate FiO2 03/17/25 13:24 98.4 88 119/68 (85) 97 Bi-pap/CPAP 03/17/25 10:30 17 03/17/25 03:36 25 03/16/25 18:30 0.0 Lab Results: 03/17/25 1350 03/17/25 0559 Objective Vital Signs: As above General: Normal body habitus, no acute distress. Skin: No rashes, lumps, ulcers, blisters, purpura or petechiae HEENT: Anicteric sclera, SHERMAN Neck: Supple and nontender without enlargement of the thyroid, or lymphadenopathy. Chest: Normal size and shape, no tenderness, CTA bilaterally Heart: Regular. No jugular venous distention, S1 and S2 heard , no gallop Abdomen: Soft and non tender no organomegaly,BS+ Extremities: + pedal edema Neuro: Nonfocal. Coagulation Studies Laboratory Tests Test 03/16/25 09:29 Prothrombin Time 10.7 SECONDS (9.0-12.0) INR International Normalized Ratio 1.0 INR Activated Partial Thromboplast Time 28 SECONDS (22-32) Coagulation Comments Advance Care Planning Advanced Care plannin - 30 Minutes Problem\Assessment\Plan Problems/Diagnosis: (1) Line sepsis associated with dialysis catheter Assessment & Plan: has graciouslypulled out the TDC on Monday. He has received the Cefepime 2 g in [facility] [place]. STOPPEd Vancomycin. He is growing E Coli . ID consult in the process. antibiotics per ID recommendations. (2) End-stage renal disease on hemodialysis Assessment & Plan: HD tonight with temp dialysis cath. Discussed with Additional Plan hyponatremia - likely to get better with Ultrafiltration BRENNAN TATUM MD Mar 17, 2025 15:46
[2025-03-17] MEDS: LIDOcaine 1% (10mg/ml) 2ml vial ONE ×2 (17:02→17:24)
--- NOTE | 2025-03-17 18:13 | PROGRESS NOTE- Residence ---
Progress Note - Resident Providers to CC Resident Creating Document: IRENE PANIAGUA RES ~ Antibiotic Timeout Antibiotic Ordered?: Yes Subjective Patient was seen and examined at bedside, femoral Parviz catheter was placed today. Patient to have hemodialysis today. No other acute overnight symptoms. Objective Vital Signs Date Time Temp Pulse Resp B/P (MAP) Pulse Ox O2 Delivery O2 Flow Rate FiO2 03/17/25 15:38 91 16 95 25 16 03/17/25 15:00 99.0 121/75 (90) Bi-pap/CPAP 03/16/25 18:30 0.0 Result Diagram: 03/17/25 1350 03/17/25 0559 General: Patient waking up from anesthesia, oriented to place and time and person, drowsy, not agitated, not in acute distress, well cooperated during the physical. HEENT: Conjunctive are pink, sclerae clear, no icterus, pupil is equal in both sides, reactive to light, no ear discharge, no pharyngeal erythema or an edema. Neck: Supple, no JVD, no lymphadenopathy and thyromegaly. Chest: Equal air entry on both lungs, no additional sounds no rhonchi no wheezing at the moment. TDC removed. Bandages looked clean and dry. Cardiovascular: S1-S2 regular sinus rhythm and, regular rate, no gallops, no rubs, no murmurs Abdomen: No visible peristalsis, Bowel sounds present on auscultation, soft, nontender, no guarding, no rigidity Extremities: No obvious deformities, capillary refill intact, peripheral pulsations are intact on both sides. Plus one pitting pedal edema. Central Nervous System: No focal neurological deficits, no motor or sensory weakness in all 4 extremities, could move all 4 extremities, 2+ deep tendon reflexes, negative Babinski. Musculoskeletal: No joint swelling, deformities, inflammations, and no scoliosis and back tenderness Skin: Warm and dry. Coagulation Studies Laboratory Tests Test 03/16/25 09:29 Prothrombin Time 10.7 SECONDS (9.0-12.0) INR International Normalized Ratio 1.0 INR Activated Partial Thromboplast Time 28 SECONDS (22-32) Coagulation Comments Advance Care Planning Advanced Care plannin - 30 Minutes Assessment Assessment 58-year-old male with ESRD on HD, HTN, new HFrEF, and dyslipidemia admitted with sepsis secondary to infected tunneled dialysis catheter. TDC removed 03/14, cultures growing lowe-sensitive E. coli (resistant only to cefazolin). Now on cefepime IV daily with improving inflammatory markers. ID and vascular surgery recommend temporary dialysis catheter until blood cultures are negative, then new TDC. Renal function remains at ESRD baseline, electrolytes managed with HD and sevelamer. Cardiac evaluation notable for new LV dysfunction (EF 4045%) with RV dilation; troponin trending down. Clinically stable, awaiting repeat cultures and temporary access placement before next HD. Plan Plan 1. Sepsis from Infected Tunneled Dialysis Catheter (TDC) Presentation: Tachycardia (HR 112), soft BP 111/66, WBC 6.8, markedly elevated procalcitonin (168). Source: Infected right TDC (removed in OR on admission). Microbiology: 03/14 blood cultures ([place]): Gram-negative rods, later speciated to E. coli (resistant to cefazolin, otherwise lowe-sensitive). 03/15 catheter tip culture: grew E. coli. Repeat blood cultures negative until today Procalcitonin trending down (168 130.5; trended down to 101.1 today), CRP 16.49, ESR 63. Antibiotics: Received cefepime 2 g IV in ED (03/14), now on cefepime 1 g IV daily (renal-adjusted). Infectious Diseases consulted: Recommended temporary dialysis catheter placement until blood cultures remain negative before new TDC insertion. Vascular surgery (Dr. Phillips) consulted: Agreed, advised holding permanent TDC placement today; proceed with temporary catheter only. Plan: Continue cefepime 1 g IV daily (renally dosed). Repeat blood cultures to document clearance before new TDC. Place temporary dialysis catheter for access until blood cultures are negative. Daily trend WBC, CRP, procalcitonin. Monitor for recurrence of fever or hemodynamic instability. 2. End-Stage Renal Disease (ESRD) on Hemodialysis (89 years) Baseline CKD V, under care of Dr. Goldberg (drapery estimator). Labs: Cr 8.82 ? 10.72 ? 12.42; BUN 25; phosphorus 5.7; K 4.5 ? 5.4 ? 4.8. Dialysis: Last HD 03/16 morning; next HD planned after new access placement. Plan per Dr. Goldberg: HD today (03/17) or Monday, via temporary catheter; TDC only after blood cultures negative. Plan: Coordinate with nephrology & vascular surgery for temporary cath placement. Continue scheduled dialysis with temporary access. Strict I/Os, daily weights. No aggressive IV fluids ? monitor for fluid overload. 3. Electrolyte Abnormalities Hyperkalemia: K peaked at 5.4, currently 4.8 post-HD. Hyperphosphatemia: Persistent ~5.7. Calcium: Not reported. Started sevelamer 800 mg TID PO. Plan: Continue sevelamer. Daily BMP, phosphorus monitoring. Manage potassium with dialysis; recheck post-dialysis. 4. Cardiovascular Hypertension, Tachycardia, PVCs, New LV Dysfunction Heart failure with reduced ejection fraction, EF 40-45% Hypertension diagnosed at 18; home meds: amlodipine 10 mg daily. Tachycardia with PVCs noted 03/15 started metoprolol 25 mg BID; rate now better controlled. Troponin elevated (168 134), trending down. CXR: Mild cardiomegaly, pulmonary vascular congestion, possible left lower opacity (atelectasis vs pneumonia vs mass). Echocardiogram (03/16): LVEF 4045% with segmental wall motion abnormalities (apical anterior, mid/basal inferoseptal hypokinesis). Mild concentric LVH. Severely dilated RV with reduced function. PASP ~30 mmHg. Plan: Continue amlodipine 10 mg daily and metoprolol 25 mg BID. Monitor HR/rhythm on telemetry. Serial troponin until stable. We will consult Cardiology tomorrow in am for new HFrEF (EF 4045%). Avoid excess IV fluids given reduced EF and ESRD. 5. Dyslipidemia Lipid panel: TG 218, LDL 50, HDL 30, Chol 114. On atorvastatin 80 mg daily. Plan: Continue high-intensity statin. 6. Psychiatric History- anxiety On olanzapine 5 mg daily and sertraline 100 mg BID. Plan: Continue home psychiatric regimen. Monitor QTc with sertraline + antipsychotic in setting of infection/electrolyte abnormalities. Code Status: Full code DVT Prophylaxis: SCDs Analgesia/ Sedation: Tylenol/morphine as needed Line/tubes: PIV/ femoral Parviz in place GI Prophylaxis: None Nutrition: Renal diet Prognosis: Guarded Disposition: Parviz in place, hemodialysis today Irene Paniagua MD Internal Medicine Resident, PGY-2 Addendum thrombocytopenia poss related to sepsis, improving Date of Service: Mar 17, 2025 Billing Provider: DENNYS GILL MD Common Visit Codes: [id number] INP/OBS CARE(HIGH) IRENE PANIAGUA, RES Mar 17, 2025 18:13 DENNYS GILL MD Mar 17, 2025 21:46
[2025-03-17] MEDS: heparin 1,000 units/ml 10ml inj HE ONE ×2 (18:25→18:26)
[2025-03-17] MEDS: EPOETIN ALFA-EPBX 20,000 UNIT/ML 1 ML MDV IV ONE (18:27)
[2025-03-17] MEDS: mannitol 12.5gm/50mL VIAL IV ONE (18:28)
--- NOTE | 2025-03-17 18:59 | CONSULTATION REPORT - RESIDENT ---
Consult Providers to CC Resident Creating Document: IRENE PITTMAN RES History of Present Illness Reason for Admit\Complaint: Sepsis History of Present Illness This is a 49-year-old male with past medical history of hypertension and chronic kidney disease stage 5 on dialysis who came to the ER from [facility] [place] in view of infected TDC placed on the right side of his chest. He was diagnosed with hypertension at the age of 20 years and is undergoing dialysis since 8-[address] Goldberg's patient. A new temporary dialysis catheter was inserted on Monday. On Monday he started feeling feverish with nausea and vomiting. 2-3 episodes of vomiting today, contained food particles, not blood tinged, non bile stained. He had a dialysis session today in [facility] [place] during which time Dr. Goldberg noticed that his TDC was infected and referred him to [facility]. He was taken to the OR on arrival and a new TDC was placed. He was given 2 g cefepime in [place] which will stay in his system for the next 48 hours. His next antibiotic dose is on Monday. His next dialysis session is on Monday. The patient sees a lead consultant for a heart condition that he could not properly explain it to me correctly. He is a poor historian. We will call his facility to get some more information Allergies: Coded Allergies: Penicillins (Verified Allergy, Unknown, 04/07/14) cefazolin (Unverified Allergy, Unknown, 03/14/25) guaifenesin (Verified Adverse Reaction, Unknown, PT NOT TO TAKE PER HIS PSYCHIATRIST, 01/07/19) Home Medications Home Medications Active Reported Lybalvi 5-10 mg Tablet (Olanzapine/Samidorphan Malate) 5 Mg-10 Mg Tablet 1 Tab PO DAILY Cinacalcet HCl 60 Mg Tablet 1 Tab PO TID Sevelamer HCl 800 Mg Tablet One-Daily Multi-Vitamin (Multivitamin) 1 Each Tablet 1 Tab PO DAILY Lokelma (Sodium Zirconium Cyclosilicate) 10 Gram Powd.pack Vitamin D3 (Cholecalciferol (Vitamin D3)) 25 Mcg (1000 Unit) Tablet 1 Tab PO DAILY Ativan (Lorazepam) 0.5 Mg Tablet 1 Tab PO DAILY PRN Amlodipine Besylate 10 Mg Tablet 1 Tab PO DAILY Gavilax (Polyethylene Glycol 3350) 17 Gm Powd.pack 17 Gm PO DAILY Hydralazine HCl 100 Mg Tablet 1 Tab PO Q8H 30 Days Dialyvite 800 Tablet (Folic Acid/Vitamin B Comp W-C) 0.8 Mg Tablet 1 Tab PO DAILY 30 Days Prilosec (Omeprazole) 40 Mg Capsule 1 Cap PO DAILY 30 Days [Renagel] 800 Tab 2,400 Mg PO TIDWM Labetalol Hcl 300 Mg Tablet 2 Tab PO TID Zoloft* (Sertraline HCl) 50 Mg Tablet 2 Tab PO BID Lasix* (Furosemide) 80 Mg Tablet 1 Tab PO BID Benazepril Hcl (Benazepril HCl) 20 Mg Tablet 20 Mg PO DAILY Lipitor (Atorvastatin Calcium) 80 Mg Tablet 1 Tablet PO HS Past Medical History Past Medical History Hypertension Chronic kidney disease Depression/anxiety Past Surgical History Surgical History Comment None Family History Family History: Patient reports no known family medical history. Past Social History Social History Comment Smoking: Non-Smoker Alcohol Use: Sober (Sober since 8-9 years. Before that drank 1-2 drinks a week) Drug Use: None ROS ROS Reviewed in full. All negative except for pertinent positive HPI. Exam Vitals: Vital Signs Date Time Temp Pulse Resp B/P (MAP) Pulse Ox O2 Delivery O2 Flow Rate FiO2 03/17/25 18:50 95 20 131/79 (96) 95 Room Air 03/17/25 18:20 98.4 03/17/25 15:38 25 03/16/25 18:30 0.0 General: General: Patient waking up from anesthesia, oriented to place and time and person, drowsy, not agitated, not in acute distress, well cooperated during the physical. HEENT: Conjunctive are pink, sclerae clear, no icterus, pupil is equal in both sides, reactive to light, no ear discharge, no pharyngeal erythema or an edema. Neck: Supple, no JVD, no lymphadenopathy and thyromegaly. Chest: Equal air entry on both lungs, no additional sounds no rhonchi no wheezing at the moment. TDC in the right side of his chest with a surrounding erythema and effusion Cardiovascular: S1-S2 regular sinus rhythm and, regular rate, no gallops, no rubs, no murmurs Abdomen: No visible peristalsis, Bowel sounds present on auscultation, soft, nontender, no guarding, no rigidity Extremities: No obvious deformities, no pitting edema bilaterally, capillary refill intact, peripheral pulsations are intact on both sides Central Nervous System: No focal neurological deficits, no motor or sensory weakness in all 4 extremities, could move all 4 extremities, 2+ deep tendon reflexes, negative Babinski. Musculoskeletal: No joint swelling, deformities, inflammations, and no scoliosis and back tenderness Skin: Warm and dry. Diagnostic Data Last Recorded Lab Results: 03/17/25 1350 03/17/25 0559 Diagnostic Data: Laboratory Tests Test 03/16/25 09:29 Prothrombin Time 10.7 SECONDS (9.0-12.0) INR International Normalized Ratio 1.0 INR Activated Partial Thromboplast Time 28 SECONDS (22-32) Coagulation Comments Additional Plan Crop Setting Out Machine Operator team was consulted for temporary femoral Parviz placement today for hemodialysis. Initial plan was for TDC placement but however as ID and vascular surgeon recommended a temporary catheter placement for hemodialysis until negative repeated blood cultures; a temporary femoral Parviz was placed today. Sepsis most likely due to infected TDC catheter Stage 5 chronic kidney disease on dialysis Primary Hypertension Further management per primary team Irene Pittman MD Internal Medicine Resident, PGY-2 Sepsis Screening Skin Color: Normal Date of Service: Mar 17, 2025 Billing Provider: BRITTA FLETCHER MD, GAURAV, RES Mar 17, 2025 18:59
--- NOTE | 2025-03-17 19:01 | PROCEDURE NOTE- Residance ---
Procedure Note Providers to CC ~ Description INDICATION: For hemodialysis PROCEDURE SUPERVISOR METAL CANS: Dr Pittman ATTENDING PHYSICIAN: Dr. Fletcher Ultrasound Used: YES CONSENT: TAKEN PROCEDURE SUMMARY: The [facility] Central Line Insertion Practices form was completed by an independent observer starting with the first handwash prior to starting sterile technique. A time out was performed. My hands were washed immediately prior to the procedure. I wore a surgical cap, mask with protective eyewear, sterile gown and sterile gloves throughout the procedure. The RIGHT inguinal region was prepped using chlorhexidine scrub and draped in sterile fashion using a full drape and sterile probe cover and sterile gel employed. The femoral pulse was identified. Anesthesia was achieved using 1% lidocaine. Palpating the femoral pulse throughout the procedure, the introducer needle was inserted medial to the femoral artery, inferior to the inguinal crease and into the femoral vein. Venous blood was withdrawn. The syringe was removed and a guidewire was advanced into the introducer needle. A small incision was made at the skin surface with a scalpel and the introducer needle was exchanged for a dilator over the guidewire. After appropriate dilation was obtained, the dilator was exchanged over the wire for a central venous catheter. The wire was removed and the catheter was sutured in place. A sterile sorbaview shield was placed over the catheter at the insertion site. The patient tolerated the procedure without any hemodynamic compromise. At time of procedure completion, all ports aspirated and flushed properly. Estimated blood loss is NONE. Date of Service: Mar 17, 2025 Billing Provider: BRITTA FLETCHER MD,IRENE, RES Mar 17, 2025 19:01
--- NOTE | 2025-03-17 20:51 | PROGRESS NOTE ---
Progress Note ID Providers to CC ~ Progress Note Progress Note: will discuss timing of tdc placement with Drs. Quezada and YENY Rodriguez MD Mar 17, 2025 20:51
--- NOTE | 2025-03-17 22:41 | ELECTROCARDIOGRAPH REPORT ---
[facility] Test Date: 2025-03-17 Test Time: 22:39:38 Pat Name: ZAHRAA DANG Department: [facility] 3S Patient ID: [facility]-[id number] Room: [place] [id number] B Gender: M Senior Software Tester: : [id number] Requested By: FAVIOLA BABCOCK Order Number: [id number] Reading MD: Dr. Corwin Broussard Measurements Intervals [place] Rate: 108 P: 61 SD: 153 QRS: 112 QRSD: 163 T: 37 QT: 401 QTc: 538 Interpretive Statements Sinus tachycardia Right bundle branch block Electronically Signed On 03-18-2025 7:21:[address] Corwin Broussard Please click the below link to view image of tracing.
[2025-03-18] VITALS (13 sets, daily range): BP systolic 99–139; BP diastolic 49–77; PULSE 71–92; RESP 12–20; TEMP 97.3–99.1; O2SAT 94–100
[2025-03-18 05:38] LABS: MEAN PLATELET VOLUME 9.9 FL (7.4-10.4); RED CELL DISTRIBUTION WIDTH 15.4 % (11.5-14.5)
[2025-03-18 05:51] LABS: CREATININE 12.15 MG/DL (0.60-1.10); TOTAL CARBON DIOXIDE 23.4 MMOL/L (24-32); eCRCL 8 ML/MIN; eGFR 4 ML/MIN
[2025-03-18 08:10] LABS: EOSINOPHILS % (MANUAL) 15.0 % (0-6); LARGE PLATELETS FEW; LYMPHOCYTES % (MANUAL) 13.0 % (21-51); MONOCYTES % (MANUAL) 15.0 % (2-12); NEUTROPHILS % (MANUAL) 57.0 % (42-75); PLATELET ESTIMATE DECREASED
--- NOTE | 2025-03-18 15:25 | PROGRESS NOTE- Residence ---
Progress Note - Resident Providers to CC Resident Creating Document: IRENE PANIAGUA RES ~ Antibiotic Timeout Antibiotic Ordered?: Yes Subjective Patient was seen and examined at bedside, no acute overnight symptoms. Patient had hemodialysis on 03/17/25. Patient is scheduled for cardiac catheterization tomorrow in a.m.. Objective Vital Signs Date Time Temp Pulse Resp B/P (MAP) Pulse Ox O2 Delivery O2 Flow Rate FiO2 03/18/25 13:45 78 18 96 25 18 03/18/25 12:02 Room Air* 0 03/18/25 11:00 97.9 139/77 (97) Result Diagram: 03/18/25 0502 03/18/25 0502 General:oriented to place and time and person, drowsy, not agitated, not in acute distress HEENT: Conjunctive are pink, sclerae clear, no icterus, pupil is equal in both sides, reactive to light, no ear discharge, no pharyngeal erythema or an edema. Neck: Supple, no JVD, no lymphadenopathy and thyromegaly. Chest: Equal air entry on both lungs, no additional sounds no rhonchi no wheezing at the moment. Cardiovascular: S1-S2 regular sinus rhythm and, regular rate, no gallops, no rubs, no murmurs Abdomen: No visible peristalsis, Bowel sounds present on auscultation, soft, nontender, no guarding, no rigidity Extremities: No obvious deformities, capillary refill intact, peripheral pulsations are intact on both sides., no pitting edema Central Nervous System: No focal neurological deficits, no motor or sensory weakness in all 4 extremities, could move all 4 extremities, 2+ deep tendon reflexes, negative Babinski. Musculoskeletal: No joint swelling, deformities, inflammations, and no scoliosis and back tenderness Skin: Warm and dry. Coagulation Studies Laboratory Tests Test 03/16/25 09:29 Prothrombin Time 10.7 SECONDS (9.0-12.0) INR International Normalized Ratio 1.0 INR Activated Partial Thromboplast Time 28 SECONDS (22-32) Coagulation Comments Advance Care Planning Advanced Care plannin - 30 Minutes Assessment Assessment 58-year-old male with ESRD on HD, HTN, new HFrEF, and dyslipidemia admitted with sepsis secondary to infected tunneled dialysis catheter. TDC removed 03/14, cultures growing lowe-sensitive E. coli (resistant only to cefazolin). Now on cefepime IV daily with improving inflammatory markers. ID and vascular surgery recommend temporary dialysis catheter until blood cultures are negative, then new TDC. Renal function remains at ESRD baseline, electrolytes managed with HD and sevelamer. Cardiac evaluation notable for new LV dysfunction (EF 4045%) with RV dilation; troponin trending down. Plan Plan 1. Sepsis from Infected Tunneled Dialysis Catheter (TDC) Presentation: Tachycardia (HR 112), soft BP 111/66, WBC 6.8, markedly elevated procalcitonin (168). Source: Infected right TDC (removed in OR on admission). Microbiology: 03/14 blood cultures ([place]): Gram-negative rods, later speciated to E. coli (resistant to cefazolin, otherwise lowe-sensitive). 03/15 catheter tip culture: grew E. coli. Repeat blood cultures negative until today Procalcitonin trending down (168 130.5; trended down to 101.1 today), CRP 16.49, ESR 63. Antibiotics: Received cefepime 2 g IV in ED (03/14), now on cefepime 1 g IV daily (renal-adjusted). Infectious Diseases consulted: Recommended temporary dialysis catheter placement until blood cultures remain negative before new TDC insertion. Vascular surgery (Dr. Phillips) consulted: Agreed, advised holding permanent TDC placement today; proceed with temporary catheter only. Plan: Continue cefepime 1 g IV daily (renally dosed). Repeat blood cultures to document clearance before new TDC. Place temporary dialysis catheter for access until blood cultures are negative. Daily trend WBC, CRP, procalcitonin. Monitor for recurrence of fever or hemodynamic instability. 03/18/2025: Continue cefepime 1 g IV daily, Repeat procalcitonin ordered (Procalcitonin trending down gradually) Patient had dialysis on 03/17 after placement of right femoral Parviz catheter Awaiting Dr. Saab and Dr. Quezada recommendations for timeline of TDC placement 2. End-Stage Renal Disease (ESRD) on Hemodialysis (89 years) Baseline CKD V, under care of Dr. Goldberg (manager ambulatory). Labs: Cr 8.82, 10.72 12.42; BUN 25; phosphorus 5.7; K 4.5 , 5.4 , 4.8. Dialysis: Last HD 03/16 morning; next HD planned after new access placement. Plan per Dr. Goldberg: HD today (03/17) or Monday, via temporary catheter; TDC only after blood cultures negative. Plan: Coordinate with nephrology & vascular surgery for temporary cath placement. Continue scheduled dialysis with temporary access. Strict I/Os, daily weights. No aggressive IV fluids and monitor for fluid overload. 03/18/2025: Creatinine post dialysis- 12.15; trended down from 15.08 Awaiting vascular surgery, Nephrology and ID for time drain of TDC placement Blood cultures negative until today 3. Electrolyte Abnormalities Hyperkalemia: K peaked at 5.4, currently 4.6 post-HD. Hyperphosphatemia: Persistent ~5.7. Calcium: Not reported. Started sevelamer 800 mg TID PO. Plan: Continue sevelamer. Daily BMP, phosphorus monitoring. Manage potassium with dialysis; recheck post-dialysis. 4. Cardiovascular Hypertension, Tachycardia, PVCs, New LV Dysfunction Heart failure with reduced ejection fraction, EF 40-45%- Acute Hypertension diagnosed at 18; home meds: amlodipine 10 mg daily. Tachycardia with PVCs noted 03/15 started metoprolol 25 mg BID; rate now better controlled. Troponin elevated (168 134), trending down. CXR: Mild cardiomegaly, pulmonary vascular congestion, possible left lower opacity (atelectasis vs pneumonia vs mass). Echocardiogram (03/16): LVEF 4045% with segmental wall motion abnormalities (apical anterior, mid/basal inferoseptal hypokinesis). Mild concentric LVH. Severely dilated RV with reduced function. PASP ~30 mmHg. Plan: Continue amlodipine 10 mg daily and metoprolol 25 mg BID. Monitor HR/rhythm on telemetry. Serial troponin until stable. We will consult Cardiology tomorrow in am for new HFrEF (EF 4045%). Avoid excess IV fluids given reduced EF and ESRD. 03/18/2025: Consulted Dr. Salazar, patient is scheduled for cardiac catheterization tomorrow in a.m. NPO after midnight Continue anti hypertensive medications: amlodipine and metoprolol 25 mg b.i.d. Continue GDM T with metoprolol 25 mg b.i.d. and initiated Jardiance 10 mg today In view of soft blood pressures, ESRD and hyperkalemia, holding off spironolactone and Arb/ARNI for now 5. Dyslipidemia Lipid panel: TG 218, LDL 50, HDL 30, Chol 114. On atorvastatin 80 mg daily. Plan: Continue high-intensity statin. 6. Psychiatric History- anxiety On olanzapine 5 mg daily and sertraline 100 mg BID. Plan: Continue home psychiatric regimen. Monitor QTc with sertraline + antipsychotic in setting of infection/electrolyte abnormalities. Code Status: Full code DVT Prophylaxis: SCDs Analgesia/ Sedation: Tylenol/morphine as needed Line/tubes: PIV/ femoral Parviz in place GI Prophylaxis: None Nutrition: Renal diet Prognosis: Guarded Disposition: Cardiac catheterization tomorrow in a.emilCorinna Paniagua MD Internal Medicine Resident, PGY-2 Date of Service: Mar 18, 2025 Billing Provider: DENNYS GILL MD Common Visit Codes: [id number] INP/OBS CARE(HIGH) IRENE PANIAGUA, RES Mar 18, 2025 15:25 DENNYS GILL MD Mar 19, 2025 06:41
--- NOTE | 2025-03-18 16:31 | PROGRESS NOTE ---
Progress Note Dictate Providers to CC ~ Central Line/PICC still needed: Yes Central Line/PICC Necessity: Req HD/Plasmapheresis Rodriguez Indications Met/Not Met: F/C Indications Not Met Antibiotic Ordered?: Yes Subjective Subjective repeat cultures have been negative. If ID okays, he can get TDC tomorrow and get dialysis on TDC. Objective Vitals Vital Signs Date Time Temp Pulse Resp B/P (MAP) Pulse Ox O2 Delivery O2 Flow Rate FiO2 03/18/25 13:45 78 18 96 25 18 03/18/25 12:02 Room Air* 0 03/18/25 11:00 97.9 139/77 (97) Lab Results: 03/18/25 0502 03/18/25 0502 Objective Vital Signs: As above General: Normal body habitus, no acute distress. Skin: No rashes, lumps, ulcers, blisters, purpura or petechiae HEENT: Anicteric sclera, SHERMAN Neck: Supple and nontender without enlargement of the thyroid, or lymphadenopathy. Chest: Normal size and shape, no tenderness, CTA bilaterally Heart: Regular. No jugular venous distention, S1 and S2 heard , no gallop Abdomen: Soft and non tender no organomegaly,BS+ Extremities: + pedal edema Neuro: Nonfocal. Coagulation Studies Laboratory Tests Test 03/16/25 09:29 Prothrombin Time 10.7 SECONDS (9.0-12.0) INR International Normalized Ratio 1.0 INR Activated Partial Thromboplast Time 28 SECONDS (22-32) Coagulation Comments Advance Care Planning Advanced Care plannin - 30 Minutes Problem\Assessment\Plan Problems/Diagnosis: (1) Line sepsis associated with dialysis catheter Assessment & Plan: has graciously pulled out the TDC 3 days ago - on GNR coverage for the E Coli (2) End-stage renal disease on hemodialysis Assessment & Plan: HD done yesterday. He feels ok. no new fevers. Sepsis Screening Skin Color: Normal BRENNAN TATUM MD Mar 18, 2025 16:31
--- NOTE | 2025-03-18 17:35 | CONSULTATION REPORT ---
Cardiac Consultation Report Providers to CC ~ Subjective Subjective Cardiology consultation: Chronically ill dialysis patient was noted to have cardiomyopathy with anterior wall hypo kinesis. Old records reviewed and in 2019 left ventriculogram was normal except for hypertrophy. Most recently was hospitalized for infected dialysis. Site. He has been receiving treatment in the initial set of blood cultures have now been net negative two more sets pending. He still has a Parviz catheter in his right groin. He admits to shortness of breath chest pressure with exertion however his chronically ill and obese. Symptoms may just be from obesity. electrocardiogram shows right bundle branch block. Troponins the 1st two days in hospital were minimally elevated. Allergies penicillin cefazolin guaifenesin Outpatient medications included polyethylene glycol benzoyl peroxide skin cream hydralazine Dialyvite Prilosec clindamycin solution labetalol Zoloft Lasix benazepril and Lipitor. Diagnosis included end-stage renal disease with dialysis hypertension unspecified arrhythmia depression with anxiety. Nonsmoker nonalcoholic. He has been on dialysis for approximately nine years. He had an echocardiogram on 03/16 showing left ventricular hypertrophy apical anterior mid and basal inferoseptal segments are hypokinetic. Right ventricle severely enlarged diminished contractility biatrial enlargement. Moderate mitral regurgitation which I can not hear. Objective Vitals Vital Signs Date Time Temp Pulse Resp B/P (MAP) Pulse Ox O2 Delivery O2 Flow Rate FiO2 03/18/25 15:00 99.1 91 18 121/75 (90) 98 Room Air 03/18/25 13:45 25 03/18/25 12:02 0 Lab Results: 03/18/25 0502 03/18/25 0502 Objective Carotid no bruit chest clear. Heart can not hear heart murmur. No S3 gallop. Abdomen active bowel sounds nontender. Right groin with Parviz catheter. Peripheral pulses foot palpable. No edema. Cooperative. No obvious lateralizing sign of a stroke. Coagulation Studies Laboratory Tests Test 03/16/25 09:29 Prothrombin Time 10.7 SECONDS (9.0-12.0) INR International Normalized Ratio 1.0 INR Activated Partial Thromboplast Time 28 SECONDS (22-32) Coagulation Comments Other Results Platelet count 75549 hemoglobin 10.4. Creatinine 12.15. BUN 64. Patient had dialysis yesterday as per charge nurse. Problem\Assessment\Plan Additional Plan Impression: Cardiomyopathy more than likely ischemic. Surprising that patient has lasted this long on dialysis. Recommendation diagnostic angiography intervention and/or coronary bypass grafting as may be needed. Risks benefits alternatives discussed with patient he wants to proceed. He is scheduled for 07 22 on 03/18/2025 BARBER AGUILERA MD Mar 18, 2025 17:35
[2025-03-19] VITALS (21 sets, daily range): BP systolic 101–143; BP diastolic 58–84; PULSE 40–104; RESP 10–21; TEMP 96.9–97.9; O2SAT 92–100
[2025-03-19 06:58] LABS: MEAN PLATELET VOLUME 9.5 FL (7.4-10.4); RED CELL DISTRIBUTION WIDTH 15.4 % (11.5-14.5)
[2025-03-19 07:00] LABS: CREATININE 14.68 MG/DL (0.60-1.10); TOTAL CARBON DIOXIDE 22.7 MMOL/L (24-32); eCRCL 6 ML/MIN; eGFR 4 ML/MIN
[2025-03-19] MEDS: EMPAGLIFLOZIN 10 MG TABLET PO SCH (08:07)
[2025-03-19] MEDS ORDERED: albumin (human) 25% 100ml IV 100 ML IV PRN (08:15)
--- NOTE | 2025-03-19 08:18 | PROGRESS NOTE ---
Progress Note Dictate Providers to CC ~ Central Line/PICC still needed: Yes Central Line/PICC Necessity: Req HD/Plasmapheresis Rodriguez Indications Met/Not Met: F/C Indications Not Met Antibiotic Ordered?: Yes Subjective Subjective The patient has not had any fevers. His repeat cultures have been negative. E coli is lowe sensitive. He should get the TDC today by . Meanwhile, he also has the temp cath. If there is going to be a delay in getting TDC placed, I would rather go ahead and use the temp cath and do dialysis first for 4 hours. orders written. If he gets his TDC, hopefully he can be discharged in a day. Objective Vitals Vital Signs Date Time Temp Pulse Resp B/P (MAP) Pulse Ox O2 Delivery O2 Flow Rate FiO2 03/19/25 06:00 96.9 83 15 134/71 (92) 99 Bi-pap/CPAP 03/19/25 03:24 25 03/18/25 12:02 0 Lab Results: 03/19/25 0601 03/19/25 0601 Objective Vital Signs: As above General: Normal body habitus, no acute distress. Skin: No rashes, lumps, ulcers, blisters, purpura or petechiae HEENT: Anicteric sclera, SHERMAN Neck: Supple and nontender without enlargement of the thyroid, or lymphadenopathy. Chest: Normal size and shape, no tenderness, CTA bilaterally Heart: Regular. No jugular venous distention, S1 and S2 heard , no gallop Abdomen: Soft and non tender no organomegaly,BS+ Extremities: + pedal edema Neuro: Nonfocal. Coagulation Studies Laboratory Tests Test 03/16/25 09:29 Prothrombin Time 10.7 SECONDS (9.0-12.0) INR International Normalized Ratio 1.0 INR Activated Partial Thromboplast Time 28 SECONDS (22-32) Coagulation Comments Advance Care Planning Advanced Care plannin - 30 Minutes Problem\Assessment\Plan Problems/Diagnosis: (1) Line sepsis associated with dialysis catheter Assessment & Plan: needs a new TDC. on antibiotics for E Coli that is lowe sensitive. (2) End-stage renal disease on hemodialysis Assessment & Plan: HD today. orders written. K is 5.4. He uses CPAP for sleep for his STANLEY Sepsis Screening Skin Color: Normal BRENNAN TATUM MD Mar 19, 2025 08:18
[2025-03-19] MEDS ORDERED: midazolam 1 mg/ML 2ml injection ONE (12:02)
[2025-03-19] MEDS ORDERED: LIDOcaine 1% 30ml preserv. free vial ONE (12:02)
[2025-03-19] MEDS ORDERED: fentaNYL/PF 50MCG/1 ML 2ML syringe ONE (12:02)
[2025-03-19] MEDS ORDERED: iohexol 350 MG/ML 50ML vial IV ONE (12:02)
[2025-03-19] MEDS ORDERED: heparin 1,000 UNITS/NS 500ml 500 ML ONE (12:02)
[2025-03-19] MEDS ORDERED: OXAZEpam 15mg capsule PO PRN (14:20)
[2025-03-19] MEDS: heparin 1,000 units/ml 10ml inj HE ONE ×2 (15:59→16:00)
[2025-03-19] MEDS: EPOETIN ALFA-EPBX 20,000 UNIT/ML 1 ML MDV IV ONE (16:02)
--- NOTE | 2025-03-19 16:11 | CONSULTATION REPORT - RESIDENT ---
Consult Providers to CC Resident Creating Document: WARNER LEDEZMA RES History of Present Illness Reason for Admit\Complaint: sepsis History of Present Illness 49 years old male with history of end-stage renal disease on hemodialysis, hypertension, suspected coronary artery disease and CHF presented to the ED with infected TDC. TDC was placed two days before admission in [facility] and patient went to dialysis center to get the dialysis however due to fever or chills vomiting and infected TDC site, they refer patient to the hospital with diagnosis of sepsis. TDC was removed on Monday by Dr. Price and culture and blood culture and TDC site culture sent. Patient received temporary catheter and underwent dialysis. ID specialist consulted for further management. Today patient denied any chest pain shortness of breaths or any new symptoms. Allergies: Coded Allergies: Penicillins (Verified Allergy, Unknown, 04/07/14) cefazolin (Unverified Allergy, Unknown, 03/14/25) guaifenesin (Verified Adverse Reaction, Unknown, PT NOT TO TAKE PER HIS PSYCHIATRIST, 01/07/19) Home Medications Home Medications Active Reported Lybalvi 5-10 mg Tablet (Olanzapine/Samidorphan Malate) 5 Mg-10 Mg Tablet 1 Tab PO DAILY Cinacalcet HCl 60 Mg Tablet 1 Tab PO TID Sevelamer HCl 800 Mg Tablet One-Daily Multi-Vitamin (Multivitamin) 1 Each Tablet 1 Tab PO DAILY Lokelma (Sodium Zirconium Cyclosilicate) 10 Gram Powd.pack Vitamin D3 (Cholecalciferol (Vitamin D3)) 25 Mcg (1000 Unit) Tablet 1 Tab PO DAILY Ativan (Lorazepam) 0.5 Mg Tablet 1 Tab PO DAILY PRN Amlodipine Besylate 10 Mg Tablet 1 Tab PO DAILY Gavilax (Polyethylene Glycol 3350) 17 Gm Powd.pack 17 Gm PO DAILY Hydralazine HCl 100 Mg Tablet 1 Tab PO Q8H 30 Days Dialyvite 800 Tablet (Folic Acid/Vitamin B Comp W-C) 0.8 Mg Tablet 1 Tab PO DAILY 30 Days Prilosec (Omeprazole) 40 Mg Capsule 1 Cap PO DAILY 30 Days [Renagel] 800 Tab 2,400 Mg PO TIDWM Labetalol Hcl 300 Mg Tablet 2 Tab PO TID Zoloft* (Sertraline HCl) 50 Mg Tablet 2 Tab PO BID Lasix* (Furosemide) 80 Mg Tablet 1 Tab PO BID Benazepril Hcl (Benazepril HCl) 20 Mg Tablet 20 Mg PO DAILY Lipitor (Atorvastatin Calcium) 80 Mg Tablet 1 Tablet PO HS Past Medical History Past Medical History Hypertension ESRD on dialysis Suspected coronary artery disease STANLEY Past Surgical History Surgical History Comment Angiography 2005 Herniorrhaphy Family History Family History: FH: hypertension (Mother,) Past Social History Social History Comment Never smoked Drink alcohol occasionally before however he is not drinking Exam Vitals: Vital Signs Date Time Temp Pulse Resp B/P (MAP) Pulse Ox O2 Delivery O2 Flow Rate FiO2 03/19/25 15:55 89 19 101/65 (77) 97 Bi-pap/CPAP 03/19/25 15:00 97.1 03/19/25 08:35 0 General: General: Awake and Alert, no acute distress. HEENT: Conjunctiva pink, Sclera clear, Mucus Membranes moist. Neck: Supple without masses and tenderness. Resp: Lungs clear to auscultation bilaterally. Heart: Regular Rate and rhythm, normal S1 and S2 Abdomen: Soft and non tender no organomegaly Extremities: No cyanosis,clubbing or edema. Skin: Warm and Dry. Neurological: Speech is clear, alert, and oriented x 4, no gross neurological deficits Diagnostic Data Last Recorded Lab Results: 03/19/25 0601 03/19/25 0601 Diagnostic Data: Laboratory Tests Test 03/16/25 09:29 Prothrombin Time 10.7 SECONDS (9.0-12.0) INR International Normalized Ratio 1.0 INR Activated Partial Thromboplast Time 28 SECONDS (22-32) Coagulation Comments Additional Plan 58-year-old male with ESRD on HD, HTN, new HFrEF, and dyslipidemia admitted with sepsis secondary to infected tunneled dialysis catheter. TDC removed 03/14, cultures growing E. coli (resistant only to cefazolin) Sepsis Secondary to infected tunneled dialysis catheter Presented with tachycardia fever and elevated procalcitonin 168 03/15 catheter tip culture: grew E. coli. Initial Blood culture in Issue with E. coli Blood culture negative in our hospital after four days It is okay to get TDC tomorrow Patient was on cefepime, we changed to ceftazidime 1 g daily. On DC, he can get ceftazidime through dialysis( 2 g, 2 g, 3 g) for overall two weeks of antibiotic End-stage renal disease Patient received hemodialysis through temporary catheter Suspected Coronary artery disease and heart failure Echocardiography showed:There is moderate LV systolic dysfunction present. Overall estimated ejection fraction is about 40-45%. The LV is dilated in size with moderately reduced function. Apical anterior, Mid and basal inferoseptal segments appear hypokinetic. Mild concentric hypertrophy. Right ventricle is severely dilated with reduced function. Estimated PA systolic pressure is 30 mmHg. Plan for heart catheterization today by Dr. Martin Ledezma MD Infectious disease consult Agree with above note. Patient seen and examined with Dr. Ledezma. He is known to me from prior hospitalization at [facility] when he had staph aureus sepsis related to an infected dialysis catheter late last year. He is okay to move forward with new TDC tomorrow. We will treat with ceftazidime for a total of two weeks. This can be dosed with outpatient dialysis after discharge on a 2g/2g/3g schedule. Sepsis Screening Skin Color: Normal Date of Service: Mar 19, 2025 Billing Provider: PAWAN AMANDA MD, ELAHE, FLORENCIA Mar 19, 2025 16:11 PAWAN AMANDA MD Mar 19, 2025 18:38
--- NOTE | 2025-03-19 16:30 | PROGRESS NOTE- Residence ---
Progress Note - Resident Providers to CC Resident Creating Document: IRENE PANIAGUA RES ~ Antibiotic Timeout Antibiotic Ordered?: Yes Subjective Patient was seen and examined at bedside, no acute overnight symptoms. Patient to undergo hemodialysis today. Patient is scheduled for cardiac catheterization today by Dr. Salazar. Objective Vital Signs Date Time Temp Pulse Resp B/P (MAP) Pulse Ox O2 Delivery O2 Flow Rate FiO2 03/19/25 15:55 89 19 101/65 (77) 97 Bi-pap/CPAP 03/19/25 15:00 97.1 03/19/25 08:35 0 Result Diagram: 03/19/2560003/19/25600 General:oriented to place and time and person, not agitated, not in acute distress HEENT: Conjunctive are pink, sclerae clear, no icterus, pupil is equal in both sides, reactive to light, no ear discharge, no pharyngeal erythema or an edema. Neck: Supple, no JVD, no lymphadenopathy and thyromegaly. Chest: Equal air entry on both lungs, no additional sounds no rhonchi no wheezing at the moment. Cardiovascular: S1-S2 regular sinus rhythm and, regular rate, no gallops, no rubs, no murmurs Abdomen: No visible peristalsis, Bowel sounds present on auscultation, soft, nontender, no guarding, no rigidity Extremities: No obvious deformities, capillary refill intact, peripheral pulsations are intact on both sides., no pitting edema Central Nervous System: No focal neurological deficits, no motor or sensory weakness in all 4 extremities, could move all 4 extremities, 2+ deep tendon reflexes, negative Babinski. Musculoskeletal: No joint swelling, deformities, inflammations, and no scoliosis and back tenderness Skin: Warm and dry. Coagulation Studies Laboratory Tests Test 03/16/25 09:29 Prothrombin Time 10.7 SECONDS (9.0-12.0) INR International Normalized Ratio 1.0 INR Activated Partial Thromboplast Time 28 SECONDS (22-32) Coagulation Comments Advance Care Planning Advanced Care plannin - 30 Minutes Assessment Assessment 58-year-old male with ESRD on HD, HTN, new HFrEF, and dyslipidemia admitted with sepsis secondary to infected tunneled dialysis catheter. TDC removed 03/14, cultures growing lowe-sensitive E. coli (resistant only to cefazolin). Now on cefepime IV daily with improving inflammatory markers. ID and vascular surgery recommend temporary dialysis catheter until blood cultures are negative, then new TDC. Renal function remains at ESRD baseline, electrolytes managed with HD and sevelamer. Cardiac evaluation notable for new LV dysfunction (EF 4045%) with RV dilation; troponin trending down. Plan Plan 1. Sepsis from Infected Tunneled Dialysis Catheter (TDC) Presentation: Tachycardia (HR 112), soft BP 111/66, WBC 6.8, markedly elevated procalcitonin (168). Source: Infected right TDC (removed in OR on admission). Microbiology: 03/14 blood cultures ([place]): Gram-negative rods, later speciated to E. coli (resistant to cefazolin, otherwise lowe-sensitive). 03/15 catheter tip culture: grew E. coli. Repeat blood cultures negative until today Procalcitonin trending down (168 130.5; trended down to 101.1 today), CRP 16.49, ESR 63. Antibiotics: Received cefepime 2 g IV in ED (03/14), now on cefepime 1 g IV daily (renal-adjusted). Infectious Diseases consulted: Recommended temporary dialysis catheter placement until blood cultures remain negative before new TDC insertion. Vascular surgery (Dr. Phillips) consulted: Agreed, advised holding permanent TDC placement today; proceed with temporary catheter only. Plan: Continue cefepime 1 g IV daily (renally dosed). Repeat blood cultures to document clearance before new TDC. Place temporary dialysis catheter for access until blood cultures are negative. Daily trend WBC, CRP, procalcitonin. Monitor for recurrence of fever or hemodynamic instability. 03/18/2025: Continue cefepime 1 g IV daily, Repeat procalcitonin ordered (Procalcitonin trending down gradually) Patient had dialysis on 03/17 after placement of right femoral Parviz catheter Awaiting Dr. Saab and Dr. Quezada recommendations for timeline of TDC placement. 03/19/2025: As per ID, antibiotics has been transition to ceftazidime 1 g IV daily Procalcitonin gradually trending down: 36.37 today Patient to have hemodialysis today through right femoral Parviz catheter Dr. Saab to place TDC tomorrow in a.m. 2. End-Stage Renal Disease (ESRD) on Hemodialysis (89 years) Baseline CKD V, under care of Dr. Goldberg (wood repatcher). Labs: Cr 8.82, 10.72 12.42; BUN 25; phosphorus 5.7; 4.5 , 5.4 , 4.8. Dialysis: Last HD 03/16 morning; next HD planned after new access placement. Plan per Dr. Goldberg: HD today (03/17) or Monday, via temporary catheter; TDC only after blood cultures negative. Plan: Coordinate with nephrology & vascular surgery for temporary cath placement. Continue scheduled dialysis with temporary access. Strict I/Os, daily weights. No aggressive IV fluids and monitor for fluid overload. 03/18/2025: Creatinine post dialysis- 12.15; trended down from 15.08 Awaiting vascular surgery, Nephrology and ID for time drain of TDC placement Blood cultures negative until today 03/19/2025: Creatinine 14.68 today, patient to undergo hemodialysis today Blood cultures negative until now TDC placement tomorrow in a.m. 3. Electrolyte Abnormalities Hyperkalemia: K peaked at 5.4, currently 4.6 post-HD. Hyperphosphatemia: Persistent ~5.7. Calcium: Not reported. Started sevelamer 800 mg TID PO. Plan: Continue sevelamer. Daily BMP, phosphorus monitoring. Manage potassium with dialysis; recheck post-dialysis. 03/19/2025: Potassium 5.4 today, patient to undergo hemodialysis today We shall recheck potassium tomorrow in a.m. post dialysis 4. Cardiovascular Hypertension, Tachycardia, PVCs, New LV Dysfunction Heart failure with reduced ejection fraction, EF 40-45%- Acute Hypertension diagnosed at 18; home meds: amlodipine 10 mg daily. Tachycardia with PVCs noted 03/15 started metoprolol 25 mg BID; rate now better controlled. Troponin elevated (168 134), trending down. CXR: Mild cardiomegaly, pulmonary vascular congestion, possible left lower opacity (atelectasis vs pneumonia vs mass). Echocardiogram (03/16): LVEF 4045% with segmental wall motion abnormalities (apical anterior, mid/basal inferoseptal hypokinesis). Mild concentric LVH. Severely dilated RV with reduced function. PASP ~30 mmHg. Plan: Continue amlodipine 10 mg daily and metoprolol 25 mg BID. Monitor HR/rhythm on telemetry. Serial troponin until stable. We will consult Cardiology tomorrow in am for new HFrEF (EF 4045%). Avoid excess IV fluids given reduced EF and ESRD. 03/18/2025: Consulted Dr. Salazar, patient is scheduled for cardiac catheterization tomorrow in a.m. NPO after midnight Continue anti hypertensive medications: amlodipine and metoprolol 25 mg b.i.d. Continue GDM T with metoprolol 25 mg b.i.d. and initiated Jardiance 10 mg today In view of soft blood pressures, ESRD and hyperkalemia, holding off spironolactone and Arb/ARNI for now 03/19/2025: Patient to undergo cardiac catheterization today by Dr. Salazar Continue metoprolol and amlodipine as above Continue GDM T- metoprolol and Jardiance Holding off spironolactone, arnis/arbs for now 5. Dyslipidemia Lipid panel: TG 218, LDL 50, HDL 30, Chol 114. On atorvastatin 80 mg daily. Plan: Continue high-intensity statin. 6. Psychiatric History- anxiety On olanzapine 5 mg daily and sertraline 100 mg BID. Plan: Continue home psychiatric regimen. Monitor QTc with sertraline + antipsychotic in setting of infection/electrolyte abnormalities. Code Status: Full code DVT Prophylaxis: SCDs Analgesia/ Sedation: Tylenol/morphine as needed Line/tubes: PIV/ femoral Parviz in place GI Prophylaxis: None Nutrition: Renal diet Prognosis: Guarded Disposition: Cardiac catheterization today Followed by hemodialysis through temporary femoral Parviz catheter TDC placement by Dr. Saab tomorrow in a.m. Irene Paniagua MD Internal Medicine Resident, PGY-2 Date of Service: Mar 19, 2025 Billing Provider: CJ DENNIS MD Common Visit Codes: 29647-[id number] INP/OBS CARE(HIGH) IRENE PANIAGUA, RES Mar 19, 2025 16:30 CJ DENNIS MD Mar 19, 2025 18:37
--- NOTE | 2025-03-19 17:52 | CARDIOLOGY REPORT ---
DATE OF SERVICE: 03/19/2025 DICTATING PHYSICIAN: Danyel Salazar MD PROCEDURES: * Left heart catheterization. * Left ventriculography. * Selective left and right coronary arteriography. * Right iliofemoral artery angiography. * Conscious sedation administration, 30 minutes. * Manual compression, left femoral artery. BRIEF HISTORY/INDICATION: End-stage renal disease, dialysis patient, recently had sepsis. Dialysis site was replaced using Parviz catheter in the right groin. He was noted to have right bundle-branch block and a new cardiomyopathy with multisegmental severe hypokinesis. Echocardiography showed ejection fraction of 40%, moderate mitral regurgitation. He is hypertensive. Risks, benefits, and alternatives of the diagnostic heart catheterization were discussed with the patient and he has decided to proceed. Risks included, not restricted to ; stroke; myocardial infarction; renal failure; neurologic, vascular complication; allergic reaction. TECHNIQUE: Following usual sterile preparation and draping, right groin was infiltrated with 1% lidocaine local anesthetic, 10 mL. Conscious sedation was achieved with 1 mg of Versed, 50 mcg of fentanyl. He was maintained on oxygen 2 L per minute, normal saline 100 mL per hour. He was noted to have thick skin and he would complain of pain with needle prick. A 6-Cymraes sheath was placed in the left femoral artery. Selective left and right coronary arteriography in multiple projectional obliquities were performed with 6-Cymraes femoral left 4, right 4 Della-shaped catheters. Left ventriculography in right anterior oblique projection was performed with a 6-Cymraes straight pigtail catheter. Catheter exchanges were under fluoroscopic guidance, J-tip guidewire lead. Left iliofemoral arteriogram was performed. During Angio-Seal deployment, the wire was accidentally withdrawn. Subsequent manual compression was performed and hemostasis obtained. There were no complications. No hematoma. Peripheral pulse was intact. 100 mL of Omnipaque 350 contrast was administered. Fluoroscopy time was 3.7 minutes. Radiation exposure was 11,923 cGy/cm2. FINDINGS: 5 feet 10 inches, 243 pounds, AO 96/58, LV 96/4-10. LEFT VENTRICULOGRAM: Multisegmental moderate to severe hypokinesis. Ejection fraction of 35%. Angiographic 1+ mitral regurgitation and mitral valve prolapse present. CORONARY ARTERIES: There is calcification of the left anterior descending, left circumflex, and right coronary artery. There is no left main coronary artery. There are separate contiguous ostia of the left anterior descending and left circumflex. Left anterior descending and left circumflex vessels are patulous. Proximal left anterior descending is 1 cm diameter. Anterior descending has a 30% proximal narrowing, scattered 10%-15% narrowing throughout, LEOBARDO 2 flow. Left circumflex is 6 mm diameter proximally. It has scattered narrowing throughout with LEOBARDO 2 flow. Right coronary, calcific scattered 15% and 25% narrowings. LEOBARDO 2 flow. Posterior descending is small, less than 1 mm in diameter. RESULTS: * Multisegmental moderate to severe hypokinesis, ejection fraction 35%. * Angiographic 1+ mitral regurgitation with mitral valve prolapse. * Calcific left anterior descending, left circumflex, right coronary. Anterior descending and left circumflex are patulous. * No left main coronary artery. Separate contiguous ostia of left anterior descending and left circumflex. * 1 cm wide proximal left anterior descending, 30% proximal left anterior descending. * Left circumflex 6 mm wide proximally. Scattered 15%-25% narrowing. * Right coronary calcific scattered 15% and 25% narrowing, LEOBARDO 2 flow posterior descending less than 1 mm in diameter. COMMENT: The patient has severe cardiomyopathy. This will improve with dialysis. He has calcific mild coronary artery disease with patulous vessels with LEOBARDO 2 flow. He is recommended for continued risk factor intervention and medical therapy. Danyel Salazar MD TID: [id number] RECEIPT: [id number] JUAN/SILAS cc: [facility], MD Becky
[2025-03-19] MEDS: cefTAZidime 1 GM/NS 100ML IVPB 100 ML IV SCH (21:48)
[2025-03-20] VITALS (29 sets, daily range): BP systolic 84–126; BP diastolic 42–76; PULSE 73–108; RESP 12–22; TEMP 96.3–97.9; O2SAT 95–100
[2025-03-20 07:00] LABS: MEAN PLATELET VOLUME 9.8 FL (7.4-10.4); RED CELL DISTRIBUTION WIDTH 15.1 % (11.5-14.5)
[2025-03-20 08:19] LABS: CREATININE 14.45 MG/DL (0.60-1.10); TOTAL CARBON DIOXIDE 21.6 MMOL/L (24-32); eCRCL 7 ML/MIN; eGFR 4 ML/MIN
--- NOTE | 2025-03-20 11:10 | PROGRESS NOTE ---
Progress Note Dictate Providers to CC ~ Central Line/PICC still needed: Yes Central Line/PICC Necessity: Req HD/Plasmapheresis Rodriguez Indications Met/Not Met: F/C Indications Not Met Antibiotic Ordered?: Yes Subjective Subjective Severe Cardiomyopathy with EF 35% which is new to him. Greatly appreciate the primary team consulting cardiology and all the help from cardiology yesterday. RESULTS: * Multisegmental moderate to severe hypokinesis, ejection fraction 35%. * Angiographic 1+ mitral regurgitation with mitral valve prolapse. * Calcific left anterior descending, left circumflex, right coronary. Anterior descending and left circumflex are patulous. * No left main coronary artery. Separate contiguous ostia of left anterior descending and left circumflex. * 1 cm wide proximal left anterior descending, 30% proximal left anterior descending. * Left circumflex 6 mm wide proximally. Scattered 15%-25% narrowing. * Right coronary calcific scattered 15% and 25% narrowing, LEOBARDO 2 flow posterior descending less than 1 mm in diameter. Objective Vitals Vital Signs Date Time Temp Pulse Resp B/P (MAP) Pulse Ox O2 Delivery O2 Flow Rate FiO2 03/20/25 10:44 94 16 98 Room Air* 0 21 03/20/25 06:00 97.8 121/68 (85) Lab Results: 03/20/25 0612 03/20/25 0612 Objective Vital Signs: As above General: Normal body habitus, no acute distress. Skin: No rashes, lumps, ulcers, blisters, purpura or petechiae HEENT: Anicteric sclera, SHERMAN Neck: Supple and nontender without enlargement of the thyroid, or lymphadenopathy. Chest: Normal size and shape, no tenderness, CTA bilaterally Heart: Regular. No jugular venous distention, S1 and S2 heard , no gallop Abdomen: Soft and non tender no organomegaly,BS+ Extremities: + pedal edema Neuro: Nonfocal. Coagulation Studies Laboratory Tests Test 03/16/25 09:29 Prothrombin Time 10.7 SECONDS (9.0-12.0) INR International Normalized Ratio 1.0 INR Activated Partial Thromboplast Time 28 SECONDS (22-32) Coagulation Comments Advance Care Planning Advanced Care plannin - 30 Minutes Problem\Assessment\Plan Problems/Diagnosis: (1) Line sepsis associated with dialysis catheter Assessment & Plan: needs a new TDC. on antibiotics for E Coli that is lowe sensitive. (2) End-stage renal disease on hemodialysis Assessment & Plan: HD don eyesterday. to get TDC today by . (3) HFrEF (heart failure with reduced ejection fraction) Assessment & Plan: will aim for 4-5 liters off as tolerated again, if he can get TDC placed early part of the day today. If not, will do HD again tomorrow prior to discharge. Sepsis Screening Skin Color: Normal BRENNAN TATUM MD Mar 20, 2025 11:10
[2025-03-20] MEDS ORDERED: heparin 1,000unit/ml 10ml vial 10 ML ONE (13:29)
[2025-03-20] MEDS ORDERED: hydrALAZINE 20mg/ml inj. IV PRN ×2 (15:05→15:25)
[2025-03-20] MEDS ORDERED: labetalol 20mg/4ml (5mg/ml) syringe IV PRN ×2 (15:05→15:25)
[2025-03-20] MEDS ORDERED: morphine 4 MG/ML inj SYRINge IV PRN ×2 (15:05→15:25)
[2025-03-20] MEDS ORDERED: acetaminophen 1,000mg/100ml IV 100 ML IV PRN (15:05)
[2025-03-20] MEDS ORDERED: HYDROmorphone/PF 0.2 MG/ML SYRINGE IV PRN ×2 (15:05)
[2025-03-20] MEDS ORDERED: ondansetron/PF 4mg/2ml inj IV PRN ×2 (15:05→15:25)
[2025-03-20] MEDS: ringers solution, lacted 1,000 ML IV SCH ×2 (15:05→15:25)
[2025-03-20] MEDS ORDERED: fentaNYL/PF 50MCG/1 ML 2ML syringe IV PRN ×2 (15:25)
--- NOTE | 2025-03-20 15:26 | PROGRESS NOTE ---
Progress Note ID Providers to CC ~ Progress Note Progress Note: discussed procedure including risks/benefits/alternatives YENY ZEPEDA MD Mar 20, 2025 15:25
[2025-03-20] MEDS ORDERED: propofol inj 20 ML IV ONE (15:30)
[2025-03-20] MEDS ORDERED: fentaNYL/PF 50MCG/1 ML 2ML syringe ONE (15:30)
[2025-03-20] MEDS ORDERED: midazolam 1 mg/ML 2ml injection ONE (15:30)
--- NOTE | 2025-03-20 15:46 | VASCULAR REPORT ---
ULTRASOUND VENOUS MAPPING UPPER EXTREMITIES, LIMITED INDICATION: Bilateral internal jugular vein mapping for tunnel procedure. COMPARISON: None TECHNIQUE: Duplex Doppler evaluation of the superficial veins of the right and left neck was performe d including color Doppler and spectral/pulsed waveform analysis. FINDINGS: There is wall adherent, nonocclusive chronic wall-adherent thrombus within the right internal jugular vein. There is normal respiratory phasicity and flow through the right internal jugular vein. There is no thrombus within the left internal jugular vein. The left IJ vein measures approximately 1 5 x 16 mm in cross-section. There is normal respiratory phasicity and flow through the left internal jugular vein. 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 No thrombus in the left internal jugular vein.
[2025-03-20] MEDS: LIDOcaine 1% 30ml preserv. free vial IJ ONE (16:20)
--- NOTE | 2025-03-20 16:35 | OPERATIVE REPORT ---
Operative Report Providers to CC ~ Date of Procedure: Mar 20, 2025 Pre-Operative Diagnosis: esrd Post-Operative Diagnosis SAME as PRE-Op Procedure Performed tdc catheter placement Surgeon: edmond cunningham Anesthesiologist: Da Stafford Type of Anesthesia: General Findings: tdc cath tip at ra-svc junction Estimated Blood Loss: min Specimen Removed: none YENY ZEPEDA MD Mar 20, 2025 16:35
[2025-03-20] MEDS ORDERED: albumin (human) 25% 100ml IV 100 ML IV PRN (16:55)
[2025-03-20] MEDS: EPOETIN ALFA-EPBX 20,000 UNIT/ML 1 ML MDV IV ONE (16:55)
[2025-03-20] MEDS: heparin 1,000 units/ml 10ml inj HE ONE ×2 (17:00)
--- NOTE | 2025-03-20 17:11 | RADIOLOGY REPORT ---
CHEST RADIOGRAPH REASON FOR EXAM: tdc COMPARISON: DI CHEST,SINGLE VIEW on DOS: 03/14/25 TECHNIQUE: One view of the chest is provided FINDINGS: The cardiomediastinal silhouette is stably enlarged. There is a new left chest tunneled jose lysis catheter with the tip projecting over the area of the cavoatrial junction. There are low inspir atory volumes causing crowding and exaggeration of the pulmonary markings. There is diffuse interstit ial prominence likely representing pulmonary edema. There is likely small left pleural effusion. Ther e is no pneumothorax. IMPRESSION: No pneumothorax post placement of left tunneled dialysis catheter. Pulmonary edema. Pneumonia is not ruled out. Likely small left pleural effusion.
--- NOTE | 2025-03-20 17:36 | PROGRESS NOTE- Residence ---
Progress Note - Resident Providers to CC Resident Creating Document: IRENE PANIAGUA RES ~ Antibiotic Timeout Antibiotic Ordered?: Yes Subjective Patient was seen and examined at bedside, no acute overnight symptoms. Patient to undergo hemodialysis tomorrow prior to discharge. Patient is scheduled for TDC placement today. Objective Vital Signs Date Time Temp Pulse Resp B/P (MAP) Pulse Ox O2 Delivery O2 Flow Rate FiO2 03/20/25 17:00 82 15 117/53 (74) 99 Nasal Cannula 2.0 03/20/25 16:28 97.0 03/20/25 10:44 21 Result Diagram: 03/20/2561103/20/25611 General:oriented to place and time and person, not agitated, not in acute distress HEENT: Conjunctive are pink, sclerae clear, no icterus, pupil is equal in both sides, reactive to light, no ear discharge, no pharyngeal erythema or an edema. Neck: Supple, no JVD, no lymphadenopathy and thyromegaly. Chest: Equal air entry on both lungs, no additional sounds no rhonchi no wheezing at the moment. Cardiovascular: S1-S2 regular sinus rhythm and, regular rate, no gallops, no rubs, no murmurs Abdomen: No visible peristalsis, Bowel sounds present on auscultation, soft, nontender, no guarding, no rigidity Extremities: No obvious deformities, capillary refill intact, peripheral pulsations are intact on both sides., no pitting edema Central Nervous System: No focal neurological deficits, no motor or sensory weakness in all 4 extremities, could move all 4 extremities, 2+ deep tendon reflexes, negative Babinski. Musculoskeletal: No joint swelling, deformities, inflammations, and no scoliosis and back tenderness Skin: Warm and dry. Coagulation Studies Laboratory Tests Test 03/16/25 09:29 Prothrombin Time 10.7 SECONDS (9.0-12.0) INR International Normalized Ratio 1.0 INR Activated Partial Thromboplast Time 28 SECONDS (22-32) Coagulation Comments Advance Care Planning Advanced Care plannin - 30 Minutes Assessment Assessment 58-year-old male with ESRD on HD, HTN, new HFrEF, and dyslipidemia admitted with sepsis secondary to infected tunneled dialysis catheter. TDC removed 03/14, cultures growing lowe-sensitive E. coli (resistant only to cefazolin). Now on cefepime IV daily with improving inflammatory markers. ID and vascular surgery recommend temporary dialysis catheter until blood cultures are negative, then new TDC. Renal function remains at ESRD baseline, electrolytes managed with HD and sevelamer. Cardiac evaluation notable for new LV dysfunction (EF 4045%) with RV dilation; troponin trending down. Patient underwent cardiac catheterization which was negative, patient to undergo TDC placement followed by hemodialysis tomorrow prior to discharge. Plan Plan 1. Sepsis from Infected Tunneled Dialysis Catheter (TDC) Presentation: Tachycardia (HR 112), soft BP 111/66, WBC 6.8, markedly elevated procalcitonin (168). Source: Infected right TDC (removed in OR on admission). Microbiology: 03/14 blood cultures ([place]): Gram-negative rods, later speciated to E. coli (resistant to cefazolin, otherwise lowe-sensitive). 03/15 catheter tip culture: grew E. coli. Repeat blood cultures negative until today Procalcitonin trending down (168 130.5; trended down to 101.1 today), CRP 16.49, ESR 63. Antibiotics: Received cefepime 2 g IV in ED (03/14), now on cefepime 1 g IV daily (renal-adjusted). Infectious Diseases consulted: Recommended temporary dialysis catheter placement until blood cultures remain negative before new TDC insertion. Vascular surgery (Dr. Phillips) consulted: Agreed, advised holding permanent TDC placement today; proceed with temporary catheter only. Plan: Continue cefepime 1 g IV daily (renally dosed). Repeat blood cultures to document clearance before new TDC. Place temporary dialysis catheter for access until blood cultures are negative. Daily trend WBC, CRP, procalcitonin. Monitor for recurrence of fever or hemodynamic instability. 03/18/2025: Continue cefepime 1 g IV daily, Repeat procalcitonin ordered (Procalcitonin trending down gradually) Patient had dialysis on 03/17 after placement of right femoral Parviz catheter Awaiting Dr. Saab and Dr. Quezada recommendations for timeline of TDC placement. 03/19/2025: As per ID, antibiotics has been transition to ceftazidime 1 g IV daily Procalcitonin gradually trending down: 36.37 today Patient to have hemodialysis today through right femoral Parviz catheter Dr. Saab to place TDC tomorrow in a.m. 03/20/2025: Per ID, continuing ceftriaxone 1 g IV daily On discharge: Patient to get ceftazidime on the days of dialysis, 2 g ceftazidime IV on Monday 2 g ceftazidime IV on Monday 3 g ceftazidime IV on Monday, FOR 2 WEEKS Patient is scheduled for TDC placement today by Dr. Saab 2. End-Stage Renal Disease (ESRD) on Hemodialysis (89 years) Baseline CKD V, under care of Dr. Goldberg (phone specialist). Labs: Cr 8.82, 10.72 12.42; BUN 25; phosphorus 5.7; 4.5 , 5.4 , 4.8. Dialysis: Last HD 03/16 morning; next HD planned after new access placement. Plan per Dr. Goldberg: HD today (03/17) or Monday, via temporary catheter; TDC only after blood cultures negative. Plan: Coordinate with nephrology & vascular surgery for temporary cath placement. Continue scheduled dialysis with temporary access. Strict I/Os, daily weights. No aggressive IV fluids and monitor for fluid overload. 03/18/2025: Creatinine post dialysis- 12.15; trended down from 15.08 Awaiting vascular surgery, Nephrology and ID for time drain of TDC placement Blood cultures negative until today 03/19/2025: Creatinine 14.68 today, patient to undergo hemodialysis today Blood cultures negative until now TDC placement tomorrow in a.m. 03/20/2025: Creatinine today 14.45, patient to undergo hemodialysis tomorrow after TDC placement Blood cultures negative until now 3. Electrolyte Abnormalities Hyperkalemia: K peaked at 5.4, currently 4.6 post-HD. Hyperphosphatemia: Persistent ~5.7. Calcium: Not reported. Started sevelamer 800 mg TID PO. Plan: Continue sevelamer. Daily BMP, phosphorus monitoring. Manage potassium with dialysis; recheck post-dialysis. 03/19/2025: Potassium 5.4 today, patient to undergo hemodialysis today We shall recheck potassium tomorrow in a.m. post dialysis 03/20/2025: Potassium 5.2 today, patient to undergo hemodialysis tomorrow after TDC placement 4. Cardiovascular Hypertension, Tachycardia, PVCs, New LV Dysfunction Heart failure with reduced ejection fraction, EF 40-45%- Acute Hypertension diagnosed at 18; home meds: amlodipine 10 mg daily. Tachycardia with PVCs noted 03/15 started metoprolol 25 mg BID; rate now better controlled. Troponin elevated (168 134), trending down. CXR: Mild cardiomegaly, pulmonary vascular congestion, possible left lower opacity (atelectasis vs pneumonia vs mass). Echocardiogram (03/16): LVEF 4045% with segmental wall motion abnormalities (apical anterior, mid/basal inferoseptal hypokinesis). Mild concentric LVH. Severely dilated RV with reduced function. PASP ~30 mmHg. Plan: Continue amlodipine 10 mg daily and metoprolol 25 mg BID. Monitor HR/rhythm on telemetry. Serial troponin until stable. We will consult Cardiology tomorrow in am for new HFrEF (EF 4045%). Avoid excess IV fluids given reduced EF and ESRD. 03/18/2025: Consulted Dr. Salazar, patient is scheduled for cardiac catheterization tomorrow in a.m. NPO after midnight Continue anti hypertensive medications: amlodipine and metoprolol 25 mg b.i.d. Continue GDM T with metoprolol 25 mg b.i.d. and initiated Jardiance 10 mg today In view of soft blood pressures, ESRD and hyperkalemia, holding off spironolactone and Arb/ARNI for now 03/19/2025: Patient to undergo cardiac catheterization today by Dr. Salazar Continue metoprolol and amlodipine as above Continue GDM T- metoprolol and Jardiance Holding off spironolactone, arnis/arbs for now 03/20/2025: Patient underwent cardiac catheterization by Dr. Salazar yesterday Cardiac catheterization showed: * Multisegmental moderate to severe hypokinesis, ejection fraction 35%. * Angiographic 1+ mitral regurgitation with mitral valve prolapse. * Calcific left anterior descending, left circumflex, right coronary. Anterior descending and left circumflex are patulous. * No left main coronary artery. Separate contiguous ostia of left anterior descending and left circumflex. * 1 cm wide proximal left anterior descending, 30% proximal left anterior descending. * Left circumflex 6 mm wide proximally. Scattered 15%-25% narrowing. * Right coronary calcific scattered 15% and 25% narrowing, LEOBARDO 2 flow posterior descending less than 1 mm in diameter. Continue GDM T with metoprolol and Jardiance for now Consider outpatient follow up with Cardiology and Nephrology for initiation of low-dose arbs and spironolactone. 5. Dyslipidemia Lipid panel: TG 218, LDL 50, HDL 30, Chol 114. On atorvastatin 80 mg daily. Plan: Continue high-intensity statin. 6. Psychiatric History- anxiety On olanzapine 5 mg daily and sertraline 100 mg BID. Plan: Continue home psychiatric regimen. Monitor QTc with sertraline + antipsychotic in setting of infection/electrolyte abnormalities. 7. Obstructive sleep apnea: Continue CPAP at night Code Status: Full code DVT Prophylaxis: SCDs Analgesia/ Sedation: Tylenol/morphine as needed Line/tubes: PIV/ femoral Parviz in place GI Prophylaxis: None Nutrition: Renal diet Prognosis: Guarded Disposition: Cardiac catheterization yesterday: Negative Hemodialysis tomorrow in a.m. prior to discharge TDC placement by Dr. Saab today Anticipated discharge tomorrow Irene Paniagua MD Internal Medicine Resident, PGY-2 Date of Service: Mar 20, 2025 Billing Provider: CJ DENNIS MD Common Visit Codes: [id number] INP/OBS CARE(HIGH) IRENE PANIAGUA, FLORENCIA Mar 20, 2025 17:36 CJ DENNIS MD Mar 23, 2025 17:32
[2025-03-21] VITALS (15 sets, daily range): BP systolic 93–128; BP diastolic 49–79; PULSE 87–110; RESP 16–21; TEMP 97.5–98; O2SAT 95–100
[2025-03-21 03:23] LABS: MEAN PLATELET VOLUME 8.7 FL (7.4-10.4); RED CELL DISTRIBUTION WIDTH 14.9 % (11.5-14.5)
[2025-03-21 03:41] LABS: CREATININE 11.83 MG/DL (0.60-1.10); TOTAL CARBON DIOXIDE 24.4 MMOL/L (24-32); eCRCL 8 ML/MIN; eGFR 5 ML/MIN
[2025-03-21] MEDS: heparin 1,000 units/ml 10ml inj HE ONE ×2 (08:08→08:09)
[2025-03-21] MEDS: EPOETIN ALFA-EPBX 20,000 UNIT/ML 1 ML MDV IV ONE (08:10)
--- NOTE | 2025-03-21 08:18 | OPERATIVE REPORT ---
DATE OF SURGERY: 03/20/2025 DICTATING PHYSICIAN: Tone Price MD PREOPERATIVE DIAGNOSIS: End-stage renal disease. POSTOPERATIVE DIAGNOSIS: End-stage renal disease. PROCEDURE: TDC catheter placement. SURGEON: Tone Price MD CERTIFIED NURSE OPERATING ROOM: None. ANESTHESIA: General/Dr. Stafford. DRAINS: None. INDICATIONS FOR OPERATION: A 49-year-old male with end-stage renal disease, admitted with sepsis, had a TDC catheter taken out. Infection is cleared. The patient was taken back to surgery for repeat TDC catheter placement. INTRAOPERATIVE FINDINGS: A TDC catheter tip at right atrial SVC junction. DESCRIPTION OF PROCEDURE: The patient was placed supine on the operating table after induction of general anesthesia and placement of LMA. Chest and neck were prepped and draped. Incision was made in the base of the left neck. Left IJ cannulated using ultrasound guidance. Guidewire passed. then passed over a large guidewire. Sheath was then passed into the right IJ, positioned confirmed by fluoroscopy. Incision was then made in the left anterior chest wall. Dialysis catheter passed through a tunnel from the chest wall to the left neck incision. Dialysis catheter was then passed through the sheath and the sheath was withdrawn. was then confirmed in the right atrial SVC junction using fluoroscopy. Wounds were then closed and dressings applied and the catheter was flushed and the patient was transferred to recovery in stable condition. Tone Price MD TID: [id number] RECEIPT: [id number] HERMINIA/KHUSHBU/DEVORAH cc:
[2025-03-21] MEDS ORDERED: EMPA10TA PO (12:43)
[2025-03-21] MEDS ORDERED: METO-395 PO (12:46)
[2025-03-21] MEDS ORDERED: HYDR100T12 PO (12:48)
--- NOTE | 2025-03-21 15:48 | DISCHARGE SUMMARY-Residence ---
Discharge Summary Providers to CC Resident Creating Document: IRENE PANIAGUA, RES ~ Discharge Summary Admission Diagnosis: esrd Hospital Course DATE OF ADMISSION: 03/14/2025 DATE OF DISCHARGE: 03/21/2025 Discharge Diagnosis\Comment: 1. Sepsis from Infected Tunneled Dialysis Catheter (TDC) 2. End-Stage Renal Disease (ESRD) on Hemodialysis (89 years) 3. Electrolyte Abnormalities Hyperkalemia Hyperphosphatemia 4. Cardiovascular Hypertension, Tachycardia, PVCs, New LV Dysfunction Heart failure with reduced ejection fraction, EF 40-45%- Acute 5. Dyslipidemia 6. Psychiatric History- anxiety 7. Obstructive sleep apnea: Operations\Procedures: Right femoral Parviz catheter placement TDC placement Hemodialysis Consultants: ICU care team General surgery Nephrology Complications: None Condition on DC: Stable New Medications: Metoprolol Succinate (Metoprolol Succinate) 25 Mg Tab.sr.24h 1 TAB PO DAILY for 30 Days, #30 TAB 0 Refills Empagliflozin (Jardiance) 10 Mg Tablet 10 MG PO DAILY for 30 Days, #30 TAB Changed Medications: Hydralazine HCl (Hydralazine HCl) 100 Mg Tablet 1 TAB PO Q12H for 30 Days, #60 TAB (Changed from: Q8H; 90) Continued Medications: Amlodipine Besylate (Amlodipine Besylate) 10 Mg Tablet 1 TAB PO DAILY Atorvastatin Calcium (Lipitor) 80 Mg Tablet 1 TABLET PO HS, #90 TABLET 3 Refills Benazepril Hcl (Benazepril Hcl) 20 Mg Tablet 20 MG PO DAILY, #90 TABLET 3 Refills Cholecalciferol (Vitamin D3) (Vitamin D3) 25 Mcg (1000 Unit) Tablet 1 TAB PO DAILY Cinacalcet HCl (Cinacalcet HCl) 60 Mg Tablet 1 TAB PO TID Folic Acid/Vitamin B Comp W-C (Dialyvite 800 Tablet) 0.8 Mg Tablet 1 TAB PO DAILY for 30 Days, #30 TAB Furosemide* (Lasix*) 80 Mg Tablet 1 TAB PO BID, TAB Lorazepam (Ativan) 0.5 Mg Tablet 1 TAB PO DAILY PRN for for anxiety/agitation Multivitamin (One-Daily Multi-Vitamin) 1 Each Tablet 1 TAB PO DAILY Olanzapine/Samidorphan Malate (Lybalvi 5-10 mg Tablet) 5 Mg-10 Mg Tablet 1 TAB PO DAILY Omeprazole (Prilosec) 40 Mg Capsule 1 CAP PO DAILY for 30 Days, #30 CAP Polyethylene Glycol 3350 (Gavilax) 17 Gm Powd.pack 17 GM PO DAILY, PACKET [Renagel] () 800 TAB 2400 MG PO TIDWM Sertraline Hcl* (Zoloft*) 50 Mg Tablet 2 TAB PO BID, TAB Sevelamer HCl (Sevelamer HCl) 800 Mg Tablet Sodium Zirconium Cyclosilicate (Lokelma) 10 Gram Powd.pack Discontinued Medications: Labetalol Hcl (Labetalol Hcl) 300 Mg Tablet 2 TAB PO TID, TAB Discharge Summary: HPI as per admitting physician: This is a 49-year-old male with past medical history of hypertension and chronic kidney disease stage 5 on dialysis who came to the ER from [place] in view of infected TDC placed on the right side of his chest. He was diagnosed with hypertension at the age of 20 years and is undergoing dialysis since 8-[address] Goldberg's patient. A new temporary dialysis catheter was inserted on Monday. On Monday he started feeling feverish with nausea and vomiting. 2-3 episodes of vomiting today, contained food particles, not blood tinged, non bile stained. He had a dialysis session today in [place] during which time Dr. Goldberg noticed that his TDC was infected and referred him to [facility]. He was taken to the OR on arrival and a new TDC was placed. He was given 2 g cefepime in [place] which will stay in his system for the next 48 hours. His next antibiotic dose is on Monday. His next dialysis session is on Monday. 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 He is a poor historian. We will call his facility to get some more information Hospital course: A 58-year-old male with end-stage renal disease (ESRD) on chronic hemodialysis, hypertension, new systolic heart failure, and dyslipidemia, was admitted on 03/14/2025 with sepsis secondary to an infected tunneled dialysis catheter (TDC). On admission, he was tachycardic (HR 112) with soft blood pressure (111/66) and elevated inflammatory markers including markedly elevated procalcitonin (168). Initial blood cultures grew gram-negative rods, later speciated to E. coli resistant only to cefazolin. The infected right TDC was removed in the OR on the day of admission. Infectious Disease / Sepsis The patient received empiric cefepime 2 g IV in the ED, transitioned to cefepime 1 g IV daily (renal-adjusted). Catheter tip culture also grew E. coli. Repeat blood cultures were monitored to document clearance. Procalcitonin and inflammatory markers gradually trended down (168 130.5 101.1 36.37). 03/17: Temporary right femoral Parviz catheter placed for dialysis. 03/19: Per ID, antibiotics transitioned to ceftazidime 1 g IV daily. 03/20: Switched to ceftriaxone 1 g IV daily while inpatient. Plan on discharge: ceftazidime to be administered on dialysis days for 2 weeks (2 g Monday, 2 g Monday, 3 g Monday). No further fevers; blood cultures remained negative. Renal / Dialysis The patient has baseline ESRD (89 years) on thrice-weekly HD under Dr. Goldberg. Following removal of the infected TDC, dialysis was performed via the temporary femoral Parviz catheter. Creatinine fluctuated (15.08 12.15 14.68 14.45). Potassium peaked at 5.4 mmol/L, managed with HD; phosphorus remained persistently elevated (~5.7). Started on sevelamer 800 mg TID PO for phosphate control. After sustained negative blood cultures, vascular surgery scheduled new TDC placement on 03/20, followed by hemodialysis on 03/21 prior to discharge. Cardiology During hospitalization, new systolic dysfunction was identified: Echocardiogram (03/16): EF 4045% with segmental wall motion abnormalities, RV dilation with reduced function, mild concentric LVH. Cardiac catheterization (03/19): Showed EF ~35%, multisegmental hypokinesis, mild coronary artery disease (30% LAD stenosis, scattered 1525% in RCA/LCx), mitral valve prolapse with 1+ MR, LEOBARDO 2 flow in distal RCA. No obstructive CAD. Management: Metoprolol 25 mg BID for rate control of tachycardia/PVCs. Amlodipine 10 mg daily for BP. Jardiance 10 mg daily initiated for guideline-directed therapy in HFrEF. Spironolactone and ARB/ARNI were held due to ESRD, hyperkalemia, and borderline BP. Plan for outpatient follow-up with cardiology for further titration. Other Issues Dyslipidemia: Continued atorvastatin 80 mg daily. Psychiatric history: Continued sertraline 100 mg BID and olanzapine 5 mg daily; QTc monitored. Obstructive sleep apnea: Continued CPAP at night. Hypertension: Stable on amlodipine and metoprolol. Hospital Day-by-Day [place] Events 03/14: Admission with sepsis. TDC removed. Started cefepime. 03/15: Catheter tip culture positive for E. coli. Repeat blood cultures negative. 03/16: Echo showed new LV dysfunction. 03/17: Femoral Parviz catheter placed; HD performed. 03/18: Creatinine trended down post-dialysis. Plans made for cardiac cath. 03/19: Underwent cardiac catheterization (non-obstructive CAD). Antibiotics switched to ceftazidime. 03/20: TDC placed by vascular surgery. On ceftriaxone inpatient; discharge antibiotic regimen finalized (ceftazidime on dialysis days). 03/21: Planned HD via new TDC, then discharge home. Patient underwent TDC placement and hemodialysis on discharge day. He remained afebrile and hemodynamically stable with negative follow-up blood cultures and improving inflammatory markers. Discharged home with instructions to receive ceftazidime on dialysis days for 2 weeks, continue his chronic medications, and follow up with nephrology, cardiology, vascular surgery, and infectious disease. Imaging: Echocardiogram: There is moderate LV systolic dysfunction present. Overall estimated ejection fraction is about 40-45%. The LV is dilated in size with moderately reduced function. Apical anterior, Mid and basal inferoseptal segments appear hypokinetic. Mild concentric hypertrophy. Right ventricle is severely dilated with reduced function. Estimated PA systolic pressure is 30 mmHg. Trileaflet AV appears sclerotic without stenosis. Trace insufficiency. Mild MV annular thickening without stenosis. Moderate mitral regurgitation present. TV appears structurally normal with mild regurgitation. TV appears structurally normal with mild regurgitation. Grossly normal PV without stenosis, physiologic insufficiency. Normal pericardium. No pericardial effusion seen. Carotid ultrasound: Nonocclusive chronic wall-adherent thrombus within the right internal jugular vein. No thrombus in the left internal jugular vein. Chest x-ray: No pneumothorax post placement of left tunneled dialysis catheter. Pulmonary edema. Pneumonia is not ruled out. Likely small left pleural effusion. Physical examination today: General:oriented to place and time and person, not agitated, not in acute distress HEENT: Conjunctive are pink, sclerae clear, no icterus, pupil is equal in both sides, reactive to light, no ear discharge, no pharyngeal erythema or an edema. Neck: Supple, no JVD, no lymphadenopathy and thyromegaly. Chest: Equal air entry on both lungs, no additional sounds no rhonchi no wheezing at the moment. Cardiovascular: S1-S2 regular sinus rhythm and, regular rate, no gallops, no rubs, no murmurs Abdomen: No visible peristalsis, Bowel sounds present on auscultation, soft, nontender, no guarding, no rigidity Extremities: No obvious deformities, capillary refill intact, peripheral pulsations are intact on both sides., no pitting edema Central Nervous System: No focal neurological deficits, no motor or sensory weakness in all 4 extremities, could move all 4 extremities, 2+ deep tendon reflexes, negative Babinski. Musculoskeletal: No joint swelling, deformities, inflammations, and no scoliosis and back tenderness Skin: Warm and dry. Laboratory Tests Test 03/20/25 06:12 03/20/25 15:00 03/20/25 20:05 03/20/25 22:36 White Blood Count 6.1 X10'3 Red Blood Count 3.20 X10'6 Hemoglobin 10.1 g/dl Hematocrit 29.7 % Mean Corpuscular Volume 92.8 FL Mean Corpuscular Hemoglobin 31.4 PG Mean Corpuscular Hemoglobin Concent 33.9 g/dL Red Cell Distribution Width 15.1 % Platelet Count 124 X10'3 Mean Platelet Volume 9.8 FL Neutrophils (%) (Auto) 67.5 % Lymphocytes (%) (Auto) 10.9 % Monocytes (%) (Auto) 12.7 % Eosinophils (%) (Auto) 8.6 % Basophils (%) (Auto) 0.3 % Neutrophils # (Auto) 4.1 X10'3 Lymphocytes # (Auto) 0.7 X10'3 Monocytes # (Auto) 0.8 X10'3 Eosinophils # (Auto) 0.5 X10'3 Basophils # (Auto) 0.0 X10'3 CBC Comment Sodium Level 133 MMOL/L Potassium Level 5.2 MMOL/L Chloride Level 97 MMOL/L Carbon Dioxide Level 21.6 MMOL/L Anion Gap 14 Blood Urea Nitrogen 80 MG/DL Creatinine 14.45 MG/DL Estimated GFR/1.73 m2 4 ML/MIN BUN/Creatinine Ratio 5.5 Glucose Level 91 MG/DL Calcium Level 10.3 MG/DL Albumin 2.6 G/DL Chemistry Comments Glucometer 78 mg/dl 76 mg/dl 106 mg/dl Test 03/21/25 03:00 White Blood Count 4.7 X10'3 Red Blood Count 3.36 X10'6 Hemoglobin 10.4 g/dl Hematocrit 30.8 % Mean Corpuscular Volume 91.7 FL Mean Corpuscular Hemoglobin 30.9 PG Mean Corpuscular Hemoglobin Concent 33.7 g/dL Red Cell Distribution Width 14.9 % Platelet Count 148 X10'3 Mean Platelet Volume 8.7 FL Neutrophils (%) (Auto) 67.6 % Lymphocytes (%) (Auto) 10.8 % Monocytes (%) (Auto) 13.6 % Eosinophils (%) (Auto) 7.6 % Basophils (%) (Auto) 0.4 % Neutrophils # (Auto) 3.2 X10'3 Lymphocytes # (Auto) 0.5 X10'3 Monocytes # (Auto) 0.6 X10'3 Eosinophils # (Auto) 0.4 X10'3 Basophils # (Auto) 0.0 X10'3 CBC Comment Sodium Level 137 MMOL/L Potassium Level 4.9 MMOL/L Chloride Level 98 MMOL/L Carbon Dioxide Level 24.4 MMOL/L Anion Gap 15 Blood Urea Nitrogen 61 MG/DL Creatinine 11.83 MG/DL Estimated GFR/1.73 m2 5 ML/MIN BUN/Creatinine Ratio 5.2 Glucose Level 105 MG/DL Calcium Level 10.1 MG/DL Albumin 2.8 G/DL Chemistry Comments Advise on discharge: - continue follow up with Nephrology - please get referral for Cardiology from your primary care provider for regular follow up - your cardiac catheterization during this hospital stay was uneventful - continue follow up for your reduced ejection fraction with Cardiology after you get referral from PCP - initiated medications metoprolol and Jardiance for now, continue home medication benazepril - please follow up with Nephrology and Cardiology along with your PCP for further decision regarding initiation of spironolactone (we have not started spironolactone due to deranged kidney function, hyperkalemia and soft blood pressures) - continue monitoring blood pressures at home - continue dialysis sessions on Monday and Monday as per Nephrology - continue antibiotics ceftazidime on the days of dialysis, 2 g ceftazidime IV on Monday 2 g ceftazidime IV on Monday 3 g ceftazidime IV on Monday, FOR 2 WEEKS - I have called your [facility] at [place] and discussed about the need for antibiotics for the next 2 weeks - call 911/go to the nearby ED if any emergencies *Problems/Diagnosis: (1) Line sepsis associated with dialysis catheter (2) End-stage renal disease on hemodialysis Status: Chronic (3) HFrEF (heart failure with reduced ejection fraction) Total Time Spent on D/C: > 30 Minutes Date of Service: Mar 21, 2025 Billing Provider: DENYNS GILL MD Common Visit Codes: 72915-UWK/OBS DISCH DAY >30min IRENE PANIAGUA, RES Mar 21, 2025 15:48 DENNYS GILL MD Mar 22, 2025 07:24
--- NOTE | 2025-03-21 19:09 | PROGRESS NOTE ---
Progress Note Dictate Providers to CC ~ Antibiotic Ordered?: Yes Subjective Subjective ESRD-HD dialysis today, has new TDC Objective Vitals Vital Signs Date Time Temp Pulse Resp B/P (MAP) Pulse Ox O2 Delivery O2 Flow Rate FiO2 03/21/25 15:00 97.9 104 18 104/73 (83) 96 Bi-pap/CPAP 03/21/25 11:40 0 21 On dialysis today RRR w/o murmur CTA B + BS, NT Lab Results: 03/21/25 0300 03/21/25 0300 Coagulation Studies Laboratory Tests Test 03/16/25 09:29 Prothrombin Time 10.7 SECONDS (9.0-12.0) INR International Normalized Ratio 1.0 INR Activated Partial Thromboplast Time 28 SECONDS (22-32) Coagulation Comments Problem\Assessment\Plan Problems/Diagnosis: (1) Line sepsis associated with dialysis catheter Assessment & Plan: new TDC. on antibiotics for E Coli that is lowe sensitive. (2) End-stage renal disease on hemodialysis Assessment & Plan: TDC new, iHD today, the discharge home (3) HFrEF (heart failure with reduced ejection fraction) Assessment & Plan: UF 4-5 liters off as tolerated today with iHD Sepsis Screening Skin Color: Normal WALL,RHONDA M III DO Mar 21, 2025 19:08
[2025-03-22 05:13] LABS: HBSAG SCREEN Negative (Negative)
== END 2025-03-21 17:51 | disposition home or self-care (01) | DRG 721 ==
LOC: ER 15:54 → PCU 3S 18:38 → UNDODISIN 03-20 13:52
PROVIDERS: ADMIT Internal Medicine; ATTEND Internal Medicine
PROC: 0JPT0WZ Removal of Totally Implantable Vascular Access Device from Trunk Subcutaneous Tissue and Fascia, Open Approach (ICD-10-PCS; principal; 2025-03-14 19:25)
PROC: 5A09357 Assistance with Respiratory Ventilation, Less than 24 Consecutive Hours, Continuous Positive Airway Pressure (ICD-10-PCS; 2025-03-15)
PROC: 06HY33Z Insertion of Infusion Device into Lower Vein, Percutaneous Approach (ICD-10-PCS; 2025-03-17)
PROC: B54BZZA Ultrasonography of Right Lower Extremity Veins, Guidance (ICD-10-PCS; 2025-03-17)
PROC: 5A1D70Z Performance of Urinary Filtration, Intermittent, Less than 6 Hours Per Day (ICD-10-PCS; 2025-03-17)
PROC: 5A09357 Assistance with Respiratory Ventilation, Less than 24 Consecutive Hours, Continuous Positive Airway Pressure (ICD-10-PCS; 2025-03-17)
PROC: 5A09357 Assistance with Respiratory Ventilation, Less than 24 Consecutive Hours, Continuous Positive Airway Pressure (ICD-10-PCS; 2025-03-18)
PROC: 4A023N7 Measurement of Cardiac Sampling and Pressure, Left Heart, Percutaneous Approach (ICD-10-PCS; 2025-03-19)
PROC: B2111ZZ Fluoroscopy of Multiple Coronary Arteries using Low Osmolar Contrast (ICD-10-PCS; 2025-03-19)
PROC: B2151ZZ Fluoroscopy of Left Heart using Low Osmolar Contrast (ICD-10-PCS; 2025-03-19)
PROC: B41F1ZZ Fluoroscopy of Right Lower Extremity Arteries using Low Osmolar Contrast (ICD-10-PCS; 2025-03-19)
PROC: 5A1D70Z Performance of Urinary Filtration, Intermittent, Less than 6 Hours Per Day (ICD-10-PCS; 2025-03-19)
PROC: 5A09357 Assistance with Respiratory Ventilation, Less than 24 Consecutive Hours, Continuous Positive Airway Pressure (ICD-10-PCS; 2025-03-19)
PROC: 0JH63XZ Insertion of Tunneled Vascular Access Device into Chest Subcutaneous Tissue and Fascia, Percutaneous Approach (ICD-10-PCS; 2025-03-20)
PROC: 02HV33Z Insertion of Infusion Device into Superior Vena Cava, Percutaneous Approach (ICD-10-PCS; 2025-03-20)
PROC: B5181ZA Fluoroscopy of Superior Vena Cava using Low Osmolar Contrast, Guidance (ICD-10-PCS; 2025-03-20)
PROC: B548ZZA Ultrasonography of Superior Vena Cava, Guidance (ICD-10-PCS; 2025-03-20)
PROC: 5A1D70Z Performance of Urinary Filtration, Intermittent, Less than 6 Hours Per Day (ICD-10-PCS; 2025-03-20)
PROC: 5A1D70Z Performance of Urinary Filtration, Intermittent, Less than 6 Hours Per Day (ICD-10-PCS; 2025-03-21)
PROC: 5A09357 Assistance with Respiratory Ventilation, Less than 24 Consecutive Hours, Continuous Positive Airway Pressure (ICD-10-PCS; 2025-03-21)
DX: T80.211A Bloodstream infection due to central venous catheter, initial encounter (principal); A41.51 Sepsis due to Escherichia coli [E. coli]; I13.2 Hypertensive heart and chronic kidney disease with heart failure and with stage 5 chronic kidney disease, or end stage renal disease; E83.39 Other disorders of phosphorus metabolism; E87.1 Hypo-osmolality and hyponatremia; I42.9 Cardiomyopathy, unspecified; N18.6 End stage renal disease; Y83.8 Other surgical procedures as the cause of abnormal reaction of the patient, or of later complication, without mention of misadventure at the time of the procedure; E87.5 Hyperkalemia; I25.10 Atherosclerotic heart disease of native coronary artery without angina pectoris; F41.9 Anxiety disorder, unspecified; I50.20 Unspecified systolic (congestive) heart failure; G47.33 Obstructive sleep apnea (adult) (pediatric); I34.1 Nonrheumatic mitral (valve) prolapse; F32.A Depression, unspecified; Z99.2 Dependence on renal dialysis; Z88.0 Allergy status to penicillin; Z79.899 Other long term (current) drug therapy; Z88.1 Allergy status to other antibiotic agents; Y92.89 Other specified places as the place of occurrence of the external cause
CPT/HCPCS: 36415; 36558; 71045; 71048; 80048; 80053; 80061; 82948; 83605; 83735; 84100; 84145; 84484; 85007; 85025; 85610; 85651; 85730; 86140; 87040; 87070; 87075; 87077; 87081; 87102; 87186; 87340; 93005; 93306; 93458; 93970; 94660; 94760; 96365; 97161; 97535; 99152; 99153; 99285; A4215; A4615; A4618; A6258; A6402; A6449; A7000; C1750; C1752; C1760; C1769; E1594; G0257; G0378; J0690; J0692; J0713; J1100; J1644; J2003; J2150; J2250; J2704; J3010; J3375; J3490; J7030; J7120; Q4081; Q9967